=== PATIENT | female | born 1955 | race Caucasian/White ===

== ENCOUNTER → 2017-02-12 | Outpatient (CLI) | payer MEDICARE, OTHER ==
[2017-02-12 14:22] LABS: Ionized Calcium 5.2 mg/dL (4.5-5.3)
== END ==
LOC: LABWHC1 13:34
PROVIDERS: ATTEND Otolaryngology
DX: E55.9 Vitamin D deficiency, unspecified (principal); E03.9 Hypothyroidism, unspecified; E04.2 Nontoxic multinodular goiter
CPT/HCPCS: 36415; 82306; 82330; 84439; 84443

== ENCOUNTER → 2017-02-17 | Outpatient (CLI) | payer MEDICARE, OTHER ==
--- NOTE | 2017-02-17 17:09 | US ---
EXAMINATION TYPE: US thyroid st tissue head/neck DATE OF EXAM: 02/17/2017 2:32 PM COMPARISON: 10/04/2015 CLINICAL HISTORY: 61-year-old female E04.1 Thyroid Nodule. Difficulty swallowing. TECHNIQUE: Multiple sonographic images of the thyroid gland are obtained. FINDINGS: GLAND SIZE: Right Lobe: 4.9 x 1.5 x 1.2 cm Overall Parenchyma: heterogenous Left Lobe: 4.9 x 1.7 x 1.2 cm Overall Parenchyma: heterogeneous Isthmus Thickness: 0.3 cm NODULES RIGHT: # of nodules measured on right: 2 1. 0.6 X 0.5 x 0.5 cm hypoechoic mixed nodule at the mid pole with well-defined margins. This nodu le is wider than tall and shows no intranodular vascularity. Prior size: 0.6 x 0.3 x 0.6 cm 2. 0.7 X 0.6 x 0.4 cm hypoechoic mixed nodule at the lower pole with poorly defined margins. This n odule is wider than tall and shows no intranodular vascularity. Prior size: no prior LEFT: # of nodules measured on left: 3 1. 0.9 X 0.6 x 0.6 cm isoechoic mixed nodule at the upper pole with well-defined margins; present with microcalcifications. This nodule is wide as is tall and shows no intranodular vascularity. Prior size: 1.1 x 1.0 x 0.8 cm 2. 0.6 X 0.5 x 0.3 cm vague isoechoic solid nodule at the midpole is wider than tall and shows no in tranodular vascularity. Prior size: 0.5 x 0.3 x 0.4 cm 3. 0.4 X 0.4 x 0.3 cm hypoechoic mixed nodule at the lower pole with well-defined margins. This nod ule is wider than tall and shows no intranodular vascularity. Prior size: 0.6 x 0.4 x 0.3 cm ISTHMUS: # of nodules measured in the isthmus: 0 Bilateral neck scanned, no evidence of lymphadenopathy. IMPRESSION: Heterogeneous thyroid gland with multiple bilateral nodules. These measure up to 9 mm on the left. Th e larger 7 mm nodule on the right is at the lower pole and is new. Given somewhat poorly defined jeffery ins, this can be reassessed at follow-up. The remaining nodules are largely stable.
== END | disposition home or self-care (01) ==
LOC: RADUSWWP 13:57
PROVIDERS: ATTEND Otolaryngology
DX: E04.1 Nontoxic single thyroid nodule (principal)
CPT/HCPCS: 76536

== ENCOUNTER → 2017-03-05 | Outpatient (CLI) | payer MEDICARE, OTHER | END | disposition home or self-care (01) | LOC: LABWHC1 15:25 | PROVIDERS: ATTEND Otolaryngology | DX: J30.9 Allergic rhinitis, unspecified (principal) | CPT/HCPCS: 36415 ==

== ENCOUNTER → 2018-07-28 | Outpatient (CLI) | payer MEDICARE, OTHER ==
--- NOTE | 2018-07-28 16:46 | CT ---
EXAMINATION TYPE: CT sinus wo con DATE OF EXAM: 07/28/2018 COMPARISON: None HISTORY: Chronic sinusitis. CT DLP: 581.3 mGycm. Automated Exposure Control for Dose Reduction was Utilized. TECHNIQUE: CT scan of the sinuses is performed without contrast, axial images are obtained, coronal r eformatted images are also reviewed. FINDINGS: There is bilateral patency of the os renal complex. There is fairly normal development and aeration of the paranasal sinuses. I see no bony destructive process. Orbital margins are intact. The re is minimal mucosal thickening at the floor of the left maxillary sinus. There is no evidence of re tro-orbital mass. There is atrophy of the right nasal turbinates. IMPRESSION: Minimal left maxillary sinusitis. Otherwise negative exam.
== END | disposition home or self-care (01) ==
LOC: RADCTMAIN 16:13
PROVIDERS: ATTEND Otolaryngology
DX: J32.9 Chronic sinusitis, unspecified (principal)
CPT/HCPCS: 70486

== ENCOUNTER → 2018-09-02 | Outpatient (CLI) | payer MEDICARE, OTHER ==
[2018-09-02 08:41] LABS: Basophils # (A) 0.1 k/uL (0-0.2); Basophils % (A) 1 %; Eosinophils # (A) 0.1 k/uL (0-0.7); Eosinophils % (A) 3 %; HCT 44.4 % (34.0-46.0); HGB 14.3 gm/dL (11.4-16.0); Lymphocytes # (A) 1.3 k/uL (1.0-4.8); Lymphocytes % (A) 28 %; MCH 29.2 pg (25.0-35.0); MCHC 32.2 g/dL (31.0-37.0); MCV 90.8 fL (80.0-100.0); Mean Platelet Volume 6.4; Monocytes # (A) 0.3 k/uL (0-1.0); Monocytes % (A) 6 %; Neutrophils # (A) 2.6 k/uL (1.3-7.7); Neutrophils % (A) 58 %; Platelet Count 340 k/uL (150-450); RBC 4.89 m/uL (3.80-5.40); RDW 12.5 % (11.5-15.5); WBC 4.4 k/uL (3.8-10.6)
[2018-09-02 09:32] LABS: ALT 32 U/L (9-52); AST 21 U/L (14-36); Albumin 4.1 g/dL (3.5-5.0); Alkaline Phosphatase 82 U/L (38-126); Anion Gap 10 mmol/L; Blood Urea Nitrogen 12 mg/dL (7-17); Calcium 9.9 mg/dL (8.4-10.2); Carbon Dioxide 24 mmol/L (22-30); Chloride 107 mmol/L (98-107); Cholesterol 213 mg/dL (<200); Glucose 95 mg/dL (74-99); HDL Cholesterol 53 mg/dL (40-60); LDL Cholesterol,Calculated 135 mg/dL (0-99); Lipase 125 U/L (23-300); Potassium 4.2 mmol/L (3.5-5.1); Sodium 141 mmol/L (137-145); Total Bilirubin 0.6 mg/dL (0.2-1.3); Total Protein 7.4 g/dL (6.3-8.2); Triglycerides 127 mg/dL (<150)
[2018-09-02 09:39] LABS: Amorphous Sediment,Urine Rare /hpf; Appearance,Urine Cloudy (Clear); Bilirubin,Urine Negative (Negative); Blood,Urine Negative (Negative); Color,Urine Yellow; Glucose,Urine (UA) Negative (Negative); Ketones,Urine Negative (Negative); Leukocyte Esterase,Urine Negative (Negative); Mucus,Urine Rare /hpf; Nitrite,Urine Negative (Negative); PH, Urine 7.5 (5.0-8.0); Protein,Urine Trace (Negative); RBC,Urine 1 /hpf (0-5); Specific Gravity,Urine 1.015 (1.001-1.035); Squamous Epithelial Cell,Urine <1 /hpf (0-4); Urobilinogen,Urine <2.0 mg/dL (<2.0); WBC,Urine <1 /hpf (0-5)
[2018-09-02 09:47] LABS: T4, Free (Free Thyroxine) 1.36 ng/dL (0.78-2.19)
[2018-09-02 17:52] LABS: DNA Double-Stranded NEGATIVE (NEGATIVE)
[2018-09-02 19:14] LABS: Hemoglobin A1C 4.9 % (4.0-6.0)
== END ==
LOC: LABWHC1 08:04
PROVIDERS: ATTEND Family Medicine
DX: M81.0 Age-related osteoporosis without current pathological fracture (principal); R14.0 Abdominal distension (gaseous); Z13.220 Encounter for screening for lipoid disorders; Z13.228 Encounter for screening for other metabolic disorders
CPT/HCPCS: 36415; 80053; 80061; 81001; 82306; 82607; 83036; 83690; 84439; 84443; 84481; 85025; 86038; 86225; 86304; 86376

== ENCOUNTER → 2018-09-06 | Outpatient (CLI) | payer MEDICARE, OTHER ==
--- NOTE | 2018-09-08 10:14 | MM ---
Reason for exam: screening (asymptomatic). Last mammogram was performed 2 years and 10 months ago. History: Patient is postmenopausal. Benign left US cyst aspiration of the left breast, March 26, 2006. Benign right US cyst aspiration of the right breast, March 26, 2006. Benign US right core biopsy of the right breast, March 26, 2006. Physical Findings: A clinical breast exam by your physician is recommended on an annual basis and results should be correlated with mammographic findings. MG 3D Screening Mammo W/Cad Bilateral CC and MLO view(s) were taken. Prior study comparison: October 28, 2015, bilateral MG screening mammo w CAD. August 23, 2014, bilateral MG screening mammo w CAD. The breast tissue is heterogeneously dense. This may lower the sensitivity of mammography. There is a 5mm group of calcifications in the upper inner quadrant of the right breast at middle depth. There is architectural distortion in the left upper inner quadrant on MLO 3D 37/65 and CC 30/65. No significant changes when compared with prior studies. ASSESSMENT: Incomplete: need additional imaging evaluation, BI-RAD 0 RECOMMENDATION: Special view mammogram of both breasts. If lesion persists on supplemental views, image directed ultrasound is recommended. [facility] will attempt to contact patient to return for supplemental views and ultrasound if indicated.
== END ==
LOC: RADMAMWWP 12:38
PROVIDERS: ATTEND Family Medicine
DX: Z12.31 Encounter for screening mammogram for malignant neoplasm of breast (principal)
CPT/HCPCS: 77063; 77067

== ENCOUNTER → 2018-09-09 | Outpatient (CLI) | payer MEDICARE, OTHER ==
--- NOTE | 2018-09-09 11:46 | MM ---
Reason for exam: additional evaluation requested from abnormal screening. Last mammogram was performed less than 1 month ago. History: Patient is postmenopausal. Benign left US cyst aspiration of the left breast, March 26, 2006. Benign right US cyst aspiration of the right breast, March 26, 2006. Benign US right core biopsy of the right breast, March 26, 2006. Physical Findings: Nurse did not find any significant physical abnormalities on exam. MG 3D Work Up W/Cad SORAIDA Bilateral LM view(s) were taken. CC with magnification and LM with magnification view(s) were taken of the right breast. Spot compression MLO and spot compression CC view(s) were taken of the left breast. Technologist: RT Sudeep (R)(M) Prior study comparison: September 06, 2018, bilateral MG 3d screening mammo w/cad. October 28, 2015, bilateral MG screening mammo w CAD. Left mild subtled distortion 12 o'clock 11.6cm from nipple. Right subtle calcifications. 6 month follow up recommended. These results were verbally communicated with the patient and result sheet given to the patient on 09/09/18. ASSESSMENT: Incomplete: need additional imaging evaluation, BI-RAD 0 Incomplete: need additional imaging evaluation, BI-RAD 0 of the left breast. Probably benign, BI-RAD 3 finding in the right breast. RECOMMENDATION: Ultrasound of the left breast. Follow-up diagnostic mammogram of the right breast in 6 months.
--- NOTE | 2018-09-09 11:48 | USB ---
Reason for exam: additional evaluation requested from abnormal screening. History: Patient is postmenopausal. Benign left US cyst aspiration of the left breast, March 26, 2006. Benign right US cyst aspiration of the right breast, March 26, 2006. Benign US right core biopsy of the right breast, March 26, 2006. US Breast Workup Limited LT Left limited breast ultrasound including focal area of concern, retroareolar and axilla demonstrates no cystic or solid lesion seen. These results were verbally communicated with the patient and result sheet given to the patient on 09/09/18. ASSESSMENT: Probably benign, BI-RAD 3 RECOMMENDATION: Follow-up diagnostic mammogram of the left breast in 6 months.
== END | disposition home or self-care (01) ==
LOC: RADMAMWWP 09:59
PROVIDERS: ATTEND Family Medicine
DX: R92.8 Other abnormal and inconclusive findings on diagnostic imaging of breast (principal)
CPT/HCPCS: 77066; 76642; G0279; 77062

== ENCOUNTER → 2018-09-14 | Outpatient (CLI) | payer MEDICARE, OTHER ==
--- NOTE | 2018-09-14 15:33 | US ---
EXAMINATION TYPE: US thyroid st tissue head/neck DATE OF EXAM: 09/14/2018 COMPARISON: US 02/17/17 CLINICAL HISTORY: Bloating R14.0, E04.1 Thyroid Nodule. GLAND SIZE: Right Lobe: 4.1 x 1.6 x 1.2 cm Overall Parenchyma: heterogenous Left Lobe: 4.1 x 1.7 x 1.2 cm Overall Parenchyma: heterogeneous Isthmus Thickness: 0.3 cm NODULES RIGHT: # of nodules measured on right: 2 1. 0.6 X 0.4 x 0.3 cm hypoechoic solid nodule at the mid pole with well-defined margins; . This no dule is taller than wide and shows intranodular vascularity. Prior size: 0.6 x 0.5 x 0.5 cm 2.0.3 cm hypoechoic cystic nodule at the mid pole with well-defined margins; . This nodule is taller than wide and shows no intranodular vascularity. Prior size: 0.7 x 0.6 x 0.4 cm LEFT: # of nodules measured on left: 2 1. 1.1 X 0.9 x 0.5 cm hypoechoic mixed nodule at the mid pole with well-defined margins; present wi th microcalcifications. This nodule is taller than wide and shows intranodular vascularity. Prior size: 0.9 x 0.6 x 0.6 cm 2. 1.0 X 0.6 x 0.5 cm hypoechoic solid nodule at the lower pole with well-defined margins; . This n odule is taller than wide and shows intranodular vascularity. Prior size: 0.5 x 0.3 x 0.4 cm 3Not seen this time. Prior size: 0.6 x 0.4 x 0.3 cm ISTHMUS: # of nodules measured in the isthmus: 0 Bilateral neck scanned, no evidence of lymphadenopathy. IMPRESSION: Stable nonspecific thyroid nodularity.
--- NOTE | 2018-09-14 17:15 | CT ---
EXAMINATION TYPE: CT abdomen pelvis w con DATE OF EXAM: 09/14/2018 COMPARISON: None HISTORY: Patient complains of bloating and acid reflux. CT DLP: 762.3 mGycm Automated exposure control for dose reduction was used. TECHNIQUE: Helical acquisition of images from the lung bases through the pelvis have been completed. CONTRAST: Performed with Oral Contrast and with IV Contrast, patient injected with 100 mL of Isovue 300. FINDINGS: There is a hiatal hernia with partial fixed intrathoracic stomach LUNG BASES: No significant abnormality is appreciated. AORTA: No significant abnormality is appreciated. LIVER/GB: No significant abnormality is appreciated. PANCREAS: No significant abnormality is seen. SPLEEN: No significant abnormality is seen. ADRENALS: No significant abnormality is seen. KIDNEYS: Cortical cyst associated with the left kidney, no hydronephrosis bilaterally REPRODUCTIVE ORGANS: No significant abnormality is seen BOWEL: Mild wall thickening of the rectosigmoid colon is nonspecific, difficult to exclude a mucosal lesion, there is no evident bowel obstruction. No evident appendicitis. FREE AIR: No Free Air visible. ASCITES: None visible. PELVIC ADENOPATHY: None visualized. RETROPERITONEAL ADENOPATHY: No Retroperitoneal Adenopathy visible. URINARY BLADDER: No significant abnormality is seen. OSSEOUS STRUCTURES: Degenerative disc changes noted in the lower lumbar spine. L1 shows a probable S chmorl's node superior endplate. Facet arthropathy changes are present IMPRESSION: HIATAL HERNIA. ADDITIONAL NONSPECIFIC FINDINGS DESCRIBED ABOVE.
== END | disposition home or self-care (01) ==
LOC: RADCTMAIN 13:44
PROVIDERS: ATTEND Family Medicine
DX: E04.2 Nontoxic multinodular goiter (principal); K44.9 Diaphragmatic hernia without obstruction or gangrene
CPT/HCPCS: 76536; 74177; Q9967

== ENCOUNTER → 2019-01-11 | Outpatient (CLI) | payer MEDICARE, OTHER ==
--- NOTE | 2019-01-11 08:08 | US ---
EXAMINATION TYPE: US abdomen complete DATE OF EXAM: 01/11/2019 COMPARISON: NONE CLINICAL HISTORY: R10.9 Abdominal Pain. stomach distended, recent CT EXAM MEASUREMENTS: Liver Length: 15.5 cm Gallbladder Wall: 0.2 cm CBD: 0.5 cm Spleen: 9.0 cm Right Kidney: 8.3 x 4.0 x 4.1 cm Left Kidney: 9.2 x 4.2 x 5.0 cm overlying bowel gas limits Pancreas: wnl Liver: wnl Gallbladder: wnl Evidence for sonographic Landeros's sign: no CBD: wnl Spleen: wnl Right Kidney: wnl Left Kidney: wnl Upper IVC: wnl Abd Aorta: wnl IMPRESSION: 1.
== END ==
LOC: RADUSWWP 07:28
PROVIDERS: ATTEND Family Medicine
DX: R10.9 Unspecified abdominal pain (principal)
CPT/HCPCS: 76700

== ENCOUNTER → 2019-03-13 | Outpatient (CLI) | payer MEDICARE, OTHER ==
[2019-03-13 08:36] LABS: HCT 44.9 % (34.0-46.0); HGB 14.7 gm/dL (11.4-16.0); Lymphocytes % (A) 25 %; MCH 29.3 pg (25.0-35.0); MCHC 32.7 g/dL (31.0-37.0); MCV 89.8 fL (80.0-100.0); Mean Platelet Volume 6.8; Neutrophils % (A) 61 %; Platelet Count 358 k/uL (150-450); RBC 5.01 m/uL (3.80-5.40); RDW 12.7 % (11.5-15.5); WBC 5.1 k/uL (3.8-10.6)
[2019-03-13 08:37] LABS: Basophils # (A) 0.1 k/uL (0-0.2); Basophils % (A) 1 %; Eosinophils # (A) 0.2 k/uL (0-0.7); Eosinophils % (A) 4 %; Lymphocytes # (A) 1.2 k/uL (1.0-4.8); Monocytes # (A) 0.3 k/uL (0-1.0); Monocytes % (A) 6 %; Neutrophils # (A) 3.1 k/uL (1.3-7.7)
--- NOTE | 2019-03-13 08:51 | MM ---
Reason for exam: follow-up at short interval from prior study. Last mammogram was performed 6 months ago. History: Patient is postmenopausal. Benign left US cyst aspiration of the left breast, March 26, 2006. Benign right US cyst aspiration of the right breast, March 26, 2006. Benign US right core biopsy of the right breast, March 26, 2006. Physical Findings: Nurse did not find any significant physical abnormalities on exam. MG 3D Diag Mammo W/Cad LT CC, MLO, and XCCL view(s) were taken of the left breast. Prior study comparison: September 09, 2018, bilateral MG 3d work up w/cad SORAIDA. September 06, 2018, bilateral MG 3d screening mammo w/cad. October 28, 2015, bilateral MG screening mammo w CAD. August 23, 2014, bilateral MG screening mammo w CAD. The breast tissue is heterogeneously dense. This may lower the sensitivity of mammography. Questioned upper inner quadrant architectural distortion is not as defined and additional 6 month follow up recommended. 6 month follow up also recommended for the subtle 12-1 o'clock right breast microcalcifications which seen to have been present in 2014. These results were verbally communicated with the patient and result sheet given to the patient on 03/13/19. ASSESSMENT: Probably benign, BI-RAD 3 RECOMMENDATION: Follow-up diagnostic mammogram of both breasts in 6 months. Back on schedule.
[2019-03-13 08:52] LABS: ALT 26 U/L (9-52); AST 19 U/L (14-36); Albumin 4.5 g/dL (3.5-5.0); Alkaline Phosphatase 84 U/L (38-126); Anion Gap 8 mmol/L; Blood Urea Nitrogen 11 mg/dL (7-17); Carbon Dioxide 25 mmol/L (22-30); Chloride 109 mmol/L (98-107); Cholesterol 194 mg/dL (<200); Glucose 92 mg/dL (74-99); HDL Cholesterol 53 mg/dL (40-60); LDL Cholesterol,Calculated 119 mg/dL (0-99); Lipase 113 U/L (23-300); Potassium 4.5 mmol/L (3.5-5.1); Sodium 142 mmol/L (137-145); Total Bilirubin 0.6 mg/dL (0.2-1.3); Total Protein 7.7 g/dL (6.3-8.2); Triglycerides 110 mg/dL (<150)
[2019-03-13 16:38] LABS: Vitamin D 25 Hydroxy 47.1 ng/mL (30.0-100.0)
== END | disposition home or self-care (01) ==
LOC: RADMAMWWP 06:53
PROVIDERS: ATTEND Family Medicine
DX: R92.8 Other abnormal and inconclusive findings on diagnostic imaging of breast (principal); N63.0 Unspecified lump in unspecified breast; K21.0 Gastro-esophageal reflux disease with esophagitis; E78.5 Hyperlipidemia, unspecified; E04.1 Nontoxic single thyroid nodule; R10.9 Unspecified abdominal pain
CPT/HCPCS: 84439; 80061; 80053; 82607; 83690; 84443; 85025; 82306; 83036; 77065; 36415; G0279; 77061

== ENCOUNTER → 2019-08-29 | Outpatient (CLI) | payer MEDICARE, OTHER ==
--- NOTE | 2019-08-29 10:07 | US ---
EXAMINATION TYPE: US thyroid st tissue head/neck DATE OF EXAM: 08/29/2019 COMPARISON: Thyroid ultrasounds dated 02/17/2017 and 10/04/2015 CLINICAL HISTORY: E04.1 Nontoxic single thyroid nodule. No thyroid meds. FU nodules. GLAND SIZE: Right Lobe: 4.3 x 2.2 x 1.1 cm Overall Parenchyma: homogenous Left Lobe: 4.0 x 1.5 x 1.1 cm Overall Parenchyma: homogeneous Isthmus Thickness: 0.4 cm NODULES RIGHT: # of nodules measured on right: 2 1. 0.4 X 0.4 x 0.2 cm hypoechoic nodule at the mid pole with well-defined margins. This nodule is wider than tall and shows intranodular vascularity. Prior size: 0.6 x 0.4 x 0.3 cm 2. 0.7 X 0.4 x 0.3 cm mixed nodule at the lower pole with well-defined margins. This nodule is wide r than tall and shows intranodular vascularity. Prior size: 0.7 x 0.6 x 0.4 cm LEFT: # of nodules measured on left: 2 1. 1.1 X 0.6 x 0.7 cm mixed nodule at the mid/upper pole with well-defined margins. This nodule is taller than wide and shows intranodular vascularity. Prior size: 1.1 x 0.9 x 0.5 cm 2. 0.5 X 0.3 x 0.3 cm hypoechoic solid nodule at the lower pole with well-defined margins. This nod ule is wide as tall and shows intranodular vascularity. Prior size: 1.0 x 0.6 x 0.5 cm ISTHMUS: # of nodules measured in the isthmus: 0 Bilateral neck scanned, no evidence of lymphadenopathy. IMPRESSION: Multinodular goiter with multiple subcentimeter thyroid nodules and one dominant left thy roid nodule measuring 1.1 cm, stable from the prior. The previously seen 7 mm nodule on the right emgan t demonstrated somewhat poorly defined margins on the exam of 2017 has not increased in size.
== END | disposition home or self-care (01) ==
LOC: RADUSWWP 09:19
PROVIDERS: ATTEND Family Medicine
DX: E04.2 Nontoxic multinodular goiter (principal)
CPT/HCPCS: 76536

== ENCOUNTER → 2019-09-15 | Outpatient (CLI) | payer MEDICARE, OTHER ==
--- NOTE | 2019-09-15 10:10 | MM ---
Reason for exam: additional evaluation requested from prior study. Last mammogram was performed 6 months ago. History: Patient is postmenopausal. Benign left US cyst aspiration of the left breast, March 26, 2006. Benign right US cyst aspiration of the right breast, March 26, 2006. Benign US right core biopsy of the right breast, March 26, 2006. Physical Findings: Nurse did not find any significant physical abnormalities on exam. MG 3D Diag Mammo W/Cad SORAIDA Bilateral CC and MLO view(s) were taken. LM, CC with magnification, and LM with magnification view(s) were taken of the left breast. Prior study comparison: March 13, 2019, left breast MG 3d diag mammo w/cad LT. September 09, 2018, bilateral MG 3d work up w/cad SORAIDA. The breast tissue is heterogeneously dense. This may lower the sensitivity of mammography. There is a new 1.2cm group of heterogenous right upper inner quadrant middle depth calcifications, biopsy recommended. No suspicious abnormality on the left. Right biopsy marker noted. These results were verbally communicated with the patient and result sheet given to the patient on 09/15/19. ASSESSMENT: Suspicious, BI-RAD 4 RECOMMENDATION: Stereotactic core biopsy of the right breast. Called office with mammographic findings and has scheduled an appointment for the patient for 09/25/19 at 1:[address] Wei. Biopsy scheduled for 10/05/19 at 2:20. PRELIMINARY REPORT CALLED AND FAXED TO DR. WEI ON 09/15/19.
== END | disposition home or self-care (01) ==
LOC: RADMAMWWP 07:27
PROVIDERS: ATTEND Family Medicine
DX: R92.8 Other abnormal and inconclusive findings on diagnostic imaging of breast (principal)
CPT/HCPCS: 77066; G0279; 77062

== ENCOUNTER → 2019-10-05 | Day surgery (SDC) | payer MEDICARE, OTHER ==
[2019-10-05 14:52] VITALS: RESP 18; TEMP 98; BMI 27.8
[2019-10-05 16:39] VITALS: BP 144/80; PULSE 60
--- NOTE | 2019-10-06 07:28 | MM ---
Stereotactic Mammotome core biopsy right breast. HISTORY: right breast microcalcifications. The microcalcifications in question within the right breast were targeted by the undersigned. Procedure was performed by the undersigned. Informed consent was obtained and all of the patients questions were answered. The standard sterile technique was utilized and appropriate local anesthesia was obtained with 1% lidocaine. Mammotome probe was advanced and multiple core samples were obtained and sent to pathology for interpretation. Microclip marker was deployed at the site of biopsy. Post procedural mammogram demonstrates appropriate deployment of radiopaque clip marker. The patient tolerated the procedure well and left the department in stable condition. Pathology results are pending. IMPRESSION: Successful stereotactic core biopsy microcalcifications right breast with pathology results pending. Pathology Results: High Risk RIGHT BREAST, STEREOTACTIC CORE BIOPSY: Fragmented intraductal papilloma and background fibrocystic changes including cysts, fibrosis and sclerosing adenosis. Recommendation Surgical consult of the right breast. SASHA
== END ==
LOC: RADMAMWWP 13:36
PROVIDERS: ATTEND Family Medicine
DX: D24.1 Benign neoplasm of right breast (principal); N60.11 Diffuse cystic mastopathy of right breast; N60.21 Fibroadenosis of right breast; R92.0 Mammographic microcalcification found on diagnostic imaging of breast; Z88.6 Allergy status to analgesic agent; Z88.5 Allergy status to narcotic agent
CPT/HCPCS: 88305; 19081; A4648; J2001

== ENCOUNTER → 2019-10-16 | Outpatient (CLI) | payer MEDICARE, OTHER ==
[2019-10-16 09:08] LABS: Basophils # (A) 0.1 k/uL (0-0.2); Basophils % (A) 1 %; Eosinophils # (A) 0.2 k/uL (0-0.7); Eosinophils % (A) 5 %; HCT 42.2 % (34.0-46.0); HGB 13.9 gm/dL (11.4-16.0); Lymphocytes # (A) 1.2 k/uL (1.0-4.8); Lymphocytes % (A) 30 %; MCV 90.8 fL (80.0-100.0); Mean Platelet Volume 5.7; Monocytes # (A) 0.2 k/uL (0-1.0); Monocytes % (A) 5 %; Neutrophils # (A) 2.2 k/uL (1.3-7.7); Neutrophils % (A) 56 %; Platelet Count 345 k/uL (150-450); RBC 4.65 m/uL (3.80-5.40); RDW 12.2 % (11.5-15.5)
[2019-10-16 16:47] LABS: African American GFR (CKD) 89.7 (60.0-200.0); Albumin 4.1 g/dL (3.80-4.90); Albumin/Globulin Ratio 1.95 (1.60-3.17); Anion Gap 7.3 mmol/L (4.00-12.00); Calcium 9.3 mg/dL (8.7-10.3); Carbon Dioxide 24.7 mmol/L (21.6-31.8); Chol/HDL Ratio 3.55; Globulin 2.1 g/dL (1.6-3.3); LDL Cholesterol,Calculated 122.8 mg/dL (0.0-131.0); Non-African American GFR(CKD) 77.4 (60.0-200.0); Potassium 4.3 mmol/L (3.5-5.5); Total Bilirubin 0.4 mg/dL (0.2-1.2); Total Protein 6.2 g/dL (6.2-8.2); VLDL Calculation 17.2 mg/dL (5.00-40.00)
== END ==
LOC: LABWHC1 08:23
PROVIDERS: ATTEND Family Medicine
DX: E78.5 Hyperlipidemia, unspecified (principal); K21.0 Gastro-esophageal reflux disease with esophagitis; E04.1 Nontoxic single thyroid nodule
CPT/HCPCS: 36415; 80053; 80061; 82607; 84439; 84443; 84681; 85025

== ENCOUNTER → 2019-11-16 | Outpatient (CLI) | payer MEDICARE, OTHER ==
[2019-11-16 10:34] VITALS: BP 150/93; PULSE 60; RESP 18; TEMP 97.8
--- NOTE | 2019-11-16 11:39 | P.GSHP ---
History of Present Illness H&P Date: 11/16/19 Chief Complaint: Intraductal papilloma Masood is a 64-year-old white female in consultation for Dr. Wei secondary to a core biopsy revealing an intraductal papilloma. [place] [address]. This revealed a 1.2 cm group of heterogeneous right upper inner quadrant no depth calcifications for which biopsy was recommended. No lesions of concern were noted in the left breast. The patient underwent a stereotactic core biopsy of the right breast on 1120 119. This was felt to be successful and a fragmented intraductal papilloma was noted. Surgical consultation was recommended. This is status post left breast ultrasound core biopsy many years ago which was benign. Patient does not have any nipple discharge or skin changes of concern. She is not complaining of any pain in her breasts. Patient has large breasts that a TURBT. She does complain of back pain related to this as well as shoulder notching. Family History: father: skin cancer sister: thyroid cancer Hormonal History: menarche: 13 G 2P2, breast fed: yes, first : 28 menopasue: 54 BCP: 10 years hormones: none Surgical History: 1. tubal ligation Medical History: 1. ? lupus 2. diverticulosis 3. hiatal hernia fixed intrathoracic 4. bladder prolapsed Social History: smoke: none alcohol: none drugs: none - Constitutional Constitutional: Denies chills, Denies fever - EENT Comment: needs reading glasses Eyes: left pain, bilateral dry eye Ears: deny: decreased hearing, tinnitus Ears, nose, mouth and throat: Denies headache, Denies sore throat - Breasts Breasts: bilateral: as per HPI - Cardiovascular Cardiovascular: Denies chest pain, Denies shortness of breath - Respiratory Respiratory: Reports cough - Gastrointestinal Comment: diverticulosis, hiatal hernia Gastrointestinal: Reports constipation, Denies abdominal pain, Denies diarrhea, Denies nausea, Denies vomiting - Genitourinary (Female) Genitourinary: Denies dysuria, Denies hematuria - Menstruation Menstruation: Reports postmenopausal - Musculoskeletal Comment: lupus arthritis L1 vertebrae fractured osteoporesis - Integumentary Comment: dry skin Integumentary: Denies pruritus, Denies rash - Neurological Neurological: Denies numbness, Denies weakness - Psychiatric Psychiatric: Denies anxiety, Denies depression - Endocrine Endocrine: Denies fatigue, Denies weight change - Hematologic/Lymphatic Comment: none - Allergic/Immunologic Allergic/Immunologic: Reports as per HPI, Reports seasonal allergies Past Medical History Additional Past Medical History / Comment(s): lupus, osteoporosis, hiatal hernia, diverticulosis History of Any Multi-Drug Resistant Organisms: None Reported Past Surgical History: Tubal Ligation Additional Past Surgical History / Comment(s): colonoscopy Past Anesthesia/Blood Transfusion Reactions: No Reported Reaction Past Psychological History: No Psychological Hx Reported Smoking Status: Never smoker Past Alcohol Use History: None Reported Past Drug Use History: None Reported Medications and Allergies Home Medications Medication Instructions Recorded Confirmed Type Cetirizine HCl [Zyrtec] 10 mg PO DAILY 05/13/14 11/16/19 History Ergocalciferol [Vitamin D2] 50,000 unit PO QMONTH 09/29/19 11/16/19 History Multivitamins, Thera [Multivitamin 1 tab PO DAILY 09/29/19 11/16/19 History (formulary)] Allergies Allergy/AdvReac Type Severity Reaction Status Date / Time naproxen Allergy Swelling Verified 11/16/19 10:30 Quinazolinones Allergy Rapid Verified 11/16/19 10:30 Heart Rate acetaminophen [From Vicodin] AdvReac Itching Verified 11/16/19 10:30 hydrocodone bitartrate AdvReac Itching Verified 11/16/19 10:30 [From Vicodin] Surgical - Exam Vital Signs Temp Pulse Resp BP Pulse Ox 97.8 F 60 18 150/93 97 11/16/19 10:31 11/16/19 10:31 11/16/19 10:31 11/16/19 10:31 11/16/19 10:31 BMI 29.9 - General well developed, well nourished, no distress - Eyes normal ocular movement, no icteric - ENT no hearing loss, no congestion - Neck no masses, trachea midline - Respiratory normal respiratory effort, clear to auscultation - Cardiovascular Rhythm: regular Heart Sounds: normal: S1, S2 - Abdomen Abdomen: soft, non tender, no guarding, no rigid, no rebound - Integumentary no rash, no abnormal pigmentation - Neurologic no disoriented, no combative - Musculoskeletal normal gait, normal posture - Psychiatric oriented to time, oriented to person, oriented to place, speech is normal, memory intact breast exam: BRA 36DDD Grade 3 ptosis right breast: Multi-positional exam no dominant masses or nodules of concern, fibrocystic changes At the area of the stereo biopsy there is a small hematoma, near 12 O Clock Right axilla: No adenopathy of concern Left breast: Multi-positional exam no dominant masses or nodules of concern, fibrocystic changes Left axilla: No adenopathy of concern Results Mammogram reviewed with Dr. Kruse, pathology results reviewed Assessment and Plan Assessment: Impression: 1. Intraductal papilloma on core biopsy of the right breast 2. Fibrocystic breast changes 3. hiatal hernia 4. back pain related to breast size 5. shoulder notching related to breast size 6. ? lupus 7. abnormal mammogram right breast Plan: 1. Needle localization and excisional biopsy right breast intraductal papilloma via crescent mastopexy 2. Referral for hiatal hernia 3. Consider breast reduction related to back pain and shoulder notching I had a discussion with the patient regarding the risks and benefits of the procedure. We've talked about the need for needle local excisional biopsy of the area of concern in the right breast. We talked about risks and benefits. Risks include bleeding, infection, reaction to the anesthetic. We also include the possibility of the needle moving and not obtaining the correct area requiring reexcision at a later date. We have talked about methods for excision which would include an incision directly over the lesion removed or removal via a crescent mastopexy. She understands with a crescent mastopexy she will have a slight elevation of the nipple area complex on that side. She wishes to proceed with this. Presently she has grade 3 ptosis. We have also discussed the fact that she would like to consider bilateral breast reduction, however she wishes at this time to proceed with excision of the areas of concern first. CC: Dr. Wei Encounter, 45 minutes, > 50% of time in planning and counselling.
== END | disposition home or self-care (01) ==
LOC: WWCWWP 09:26
PROVIDERS: ATTEND Surgery
DX: Z53.9 Procedure and treatment not carried out, unspecified reason (principal)

== ENCOUNTER 2020-01-09 08:14 | Day surgery (SDC) | payer MEDICARE, OTHER ==
[2020-01-04 13:12] VITALS: BMI 29.6
[~2020-01-09 08:14] MED LIST: DEXAMETHASONE SOD PHOSPHATE 10 MG/ML 1 ML VIAL IV ONE; HEPARIN SODIUM,PORCINE 5,000 UNIT/ML 1 ML VIAL SQ ONE; LACTATED RINGERS 1,000 ML IV SCH; LIDOCAINE 1% 20 ML VIAL (10MG/ML) FOR IV START INTRADERMA PRN; ONDANSETRON 4 MG/2 ML VIAL IVP ONE; Pre Op ABX Message 1 EACH MISC MISCELLANE ONE; SCOPOLAMINE 1.5MG/72HR PATCH TRANSDERM ONE; fentaNYL (PF) 50 MCG/ML 2 ML AMP IV PRN
[2020-01-09] MEDS ORDERED: ALPRAZolam 0.25 MG TAB PO ONE (09:07)
[2020-01-09] MEDS ORDERED: LIDOCAINE 1% INJ 10MG/ML (20 ML MDV) SQ ONE ×3 (10:03→12:57)
[2020-01-09] MEDS ORDERED: MIDAZOLAM 2 MG/2 ML VIAL ONE (11:51)
[2020-01-09] MEDS ORDERED: fentaNYL (PF) 50 MCG/ML 2 ML AMP ONE (11:51)
[2020-01-09] MEDS ORDERED: SODIUM CHLORIDE 4MEQ/ML 30 ML VIAL IV ONE (11:51)
[2020-01-09] MEDS ORDERED: LIDOCAINE 1% INJ 10MG/ML (20 ML MDV) ONE (11:51)
[2020-01-09] MEDS ORDERED: PROPOFOL 10 MG/ML 20 ML VIAL IV ONE (11:51)
[2020-01-09] MEDS ORDERED: NEOSTIGMINE 1 MG/ML 10 ML VIAL ONE (11:51)
[2020-01-09] MEDS ORDERED: ROCURONIUM BROMIDE 10 MG/ML 5 ML VIAL IV ONE (11:51)
[2020-01-09] MEDS ORDERED: SUCCINYLCHOLINE CHLORIDE 100 MG/5 ML SYR IV ONE (11:51)
[2020-01-09] MEDS ORDERED: LACTATED RINGERS 1,000 ML IV ONE (12:58)
--- NOTE | 2020-01-09 13:02 | P.OP ---
Date of Procedure: 01/09/20 Preoperative Diagnosis: Intraductal papilloma on core biopsy right breast Postoperative Diagnosis: Same Procedure(s) Performed: needle localization excisional biopsy Anesthesia: CORBYA, local Surgeon: Jayne Marte Estimated Blood Loss (ml): 5 IV fluids (ml): 600 Pathology: other (Breast tissue) Condition: stable Disposition: same day Indications for Procedure: Core biopsy intraductal papilloma Operative Findings: Fibrofatty breast tissue Description of Procedure: Raisa is a 64-year-old white female status post core biopsy area of concern in the right breast. Pathology revealed an intraductal papilloma. The risks and benefits of excision were discussed with the patient and she wished to proceed. The patient presented first to the radiology department where needle localization of the area of concern was performed. Patient came to the operating room and following induction of anesthesia the right breast was prepped and draped in a sterile fashion. An incision was made and carried down to the shaft of the needle. The needle was brought into the field of work. The area was grasped using an Allis clamp. Surrounding tissue was excised. Radiograph of the specimen revealed the area of concern about removed. The specimen was painted for orientation. The wound was irrigated. After assured that hemostasis was attained the deep tissues were closed using 3-0 Vicryl suture. The skin was closed using 4-0 Monocryl. Patient tolerated the procedure in stable condition. All instrument and sponge counts were correct at the end of the case.
--- NOTE | 2020-01-09 13:03 | P.DS ---
Providers Attending physician: Jayne Marte Primary care physician: Inna Wei Plan - Discharge Summary Discharge Rx Participant: Yes New Discharge Prescriptions: No Action Cetirizine HCl [Zyrtec] 10 mg PO DAILY Ergocalciferol [Vitamin D2] 50,000 unit PO QMONTH Multivitamins, Thera [Multivitamin (formulary)] 1 tab PO DAILY Omeprazole [PriLOSEC] 40 mg PO DAILY PRN PRN Reason: Gi Upset Discharge Medication List Cetirizine HCl [Zyrtec] 10 mg PO DAILY 05/13/14 [History] Ergocalciferol [Vitamin D2] 50,000 unit PO QMONTH 09/29/19 [History] Multivitamins, Thera [Multivitamin (formulary)] 1 tab PO DAILY 09/29/19 [History] Omeprazole [PriLOSEC] 40 mg PO DAILY PRN 01/04/20 [History] Follow up Appointment(s)/Referral(s): Jayne Marte MD [STAFF PHYSICIAN] - 01/18/20 2:00 pm Activity/Diet/Wound Care/Special Instructions: Do not drive for 24 hours after discharge May shower after 48 hours Wear bra at all times Discharge Disposition: HOME SELF-CARE
[2020-01-09] MEDS ORDERED: ONDANSETRON 4 MG/2 ML VIAL IVP ONE (13:12)
--- NOTE | 2020-01-09 13:13 | MM ---
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 TECHNIQUE: Needle localization with wire placement and surgical excision of area of concern in the right breast. FINDINGS: The procedure of needle localization with wire placement and than surgical excision was explained to the patient. Benefits, alternatives, and risks were discussed. An informed consent was then obtained. Preprocedural timeout was performed. The shortest pathway for procedure was chosen. Shortest pathway was CC from above approach. The overlying skin was prepped and draped in usual sterile fashion. 10 cc of 1% lidocaine was used as anesthetic into the skin and subcutaneous tissue up to the level of area of concern. A 5 cm needle was used. It was placed via a CC from above approach under mammographic guidance. Subsequent 90 degrees mammogram show the needle to be in satisfactory position relative to the targeted area. At this point, wire was placed and the needle was withdrawn. The wire was fixed to patient's skin. Images were marked for surgeon. The patient tolerated the procedure well without any immediate complication. The patient was kept in the radiology department for short stay after the procedure and then taken to surgery for surgical excision. Targeted biopsy marker and wire are identified in specimen mammogram. The patient was kept in hospital for short stay after the procedure and then discharged home in stable condition. Findings were communicated to the OR by Shanda Gunderson at 1254 on 09/08/2020. IMPRESSION: Successful, uncomplicated needle localization with wire placement and surgical excision of a targeted biopsy marker indicating the biopsy-proven intraductal papilloma in the right breast, full pathology results to follow. Pathology Results: High Risk RIGHT BREAST, NEEDLE LOCALIZATION EXCISION: Intraductal papilloma with atypia (atypical papilloma), margins negative. Background fibrocystic changes and previous biopsy site. See Note. Recommendation Follow up mammogram of the right breast in 6 months. [facility]
[2020-01-09 13:14] VITALS: TEMP 97.1
[2020-01-09 14:23] VITALS: RESP 20
[2020-01-09 14:47] VITALS: BP 123/75; PULSE 61
== END 2020-01-09 15:40 | disposition home or self-care (01) ==
LOC: OR 08:14
PROVIDERS: ATTEND Surgery
DX: D24.1 Benign neoplasm of right breast (principal); N60.11 Diffuse cystic mastopathy of right breast; N60.12 Diffuse cystic mastopathy of left breast; K44.9 Diaphragmatic hernia without obstruction or gangrene; M54.9 Dorsalgia, unspecified; N64.81 Ptosis of breast; L76.32 Postprocedural hematoma of skin and subcutaneous tissue following other procedure; K57.90 Diverticulosis of intestine, part unspecified, without perforation or abscess without bleeding; N81.10 Cystocele, unspecified; J30.2 Other seasonal allergic rhinitis; Z88.6 Allergy status to analgesic agent; Z88.5 Allergy status to narcotic agent; Z88.8 Allergy status to other drugs, medicaments and biological substances; Z78.0 Asymptomatic menopausal state; Z98.51 Tubal ligation status; Z87.39 Personal history of other diseases of the musculoskeletal system and connective tissue; Z79.899 Other long term (current) drug therapy; Z97.2 Presence of dental prosthetic device (complete) (partial); E04.1 Nontoxic single thyroid nodule; Z85.3 Personal history of malignant neoplasm of breast; Z80.8 Family history of malignant neoplasm of other organs or systems; H04.123 Dry eye syndrome of bilateral lacrimal glands; M19.90 Unspecified osteoarthritis, unspecified site; S32.019A Unspecified fracture of first lumbar vertebra, initial encounter for closed fracture; M81.0 Age-related osteoporosis without current pathological fracture; X58.XXXA Exposure to other specified factors, initial encounter
CPT/HCPCS: 19101; 88342; 88307; 88341; 76098; 19281; J2250; J1644; J1100; J2710; J2405; J2001; J3010; J0330; J2704

== ENCOUNTER → 2020-01-18 | Outpatient (CLI) | payer MEDICARE, OTHER ==
[2020-01-18 14:24] VITALS: BP 141/86; PULSE 67; RESP 18; TEMP 97.3
--- NOTE | 2020-01-18 15:02 | P.PN ---
Progress Note - Text Progress Note Date: 01/18/20 Raisa is a 64-year-old white female status post Localization excisional [place] [id number]. Pathology revealed an intraductal papilloma with atypia, margins were negative. Patient is doing well postoperatively without complaints. Physical Exam: incision: clean and dry, mild echymosis, no infection Impression: 1. Right breast intraductal papilloma with atypia completely excised Plan: 1. Repeat right breast mammogram 6 months with physician exam at that time CC Dr. Wei
== END | disposition home or self-care (01) ==
LOC: WWCWWP 14:01
PROVIDERS: ATTEND Surgery
DX: Z53.9 Procedure and treatment not carried out, unspecified reason (principal)

== ENCOUNTER → 2020-07-09 | Outpatient (CLI) | payer MEDICARE, OTHER ==
--- NOTE | 2020-07-09 09:31 | MM ---
Reason for exam: follow-up at short interval from prior study. Last mammogram was performed 10 months ago. History: Patient is postmenopausal and has history of high-risk lesion on a previous biopsy at age 64. High risk MG pre op needle loc RT of the right breast, January 09, 2020. High risk MG stereo VAD BX RT of the right breast, October 05, 2019. Benign left US cyst aspiration of the left breast, March 26, 2006. Benign right US cyst aspiration of the right breast, March 26, 2006. Benign US right core biopsy of the right breast, March 26, 2006. Physical Findings: Nurse did not find any significant physical abnormalities on exam. MG 3D Diag Mammo W/Cad RT CC and MLO view(s) were taken of the right breast. Prior study comparison: September 15, 2019, bilateral MG 3d diag mammo w/cad SORAIDA. March 13, 2019, left breast MG 3d diag mammo w/cad LT. The breast tissue is heterogeneously dense. This may lower the sensitivity of mammography. Stable post operative changes right breast. No significant new findings when compared with previous films. These results were verbally communicated with the patient and result sheet given to the patient on 07/09/20. ASSESSMENT: Benign, BI-RAD 2 RECOMMENDATION: Routine screening mammogram of both breasts in 6 months.
== END | disposition home or self-care (01) ==
LOC: RADMAMWWP 08:24
PROVIDERS: ATTEND Surgery
DX: R92.8 Other abnormal and inconclusive findings on diagnostic imaging of breast (principal)
CPT/HCPCS: 77065; G0279; 77061

== ENCOUNTER 2021-02-21 14:56 | Inpatient (IN) | payer MEDICARE, OTHER ==
[2021-02-21] MEDS ORDERED: HYDROmorphone 0.5 MG/0.5 ML SYRINGE IVP STA ×2 (16:48→18:47)
--- NOTE | 2021-02-21 17:35 | XR ---
EXAMINATION TYPE: XR humerus LT DATE OF EXAM: 02/21/2021 COMPARISON: None HISTORY: Fall, pain TECHNIQUE: 2V left humerus FINDINGS: Other appears to be an avulsion from the humeral head region. This is poorly delineated. Gr eater tuberosity is suspected. The shaft and distal humerus appears intact. IMPRESSION: 1. Suspected avulsion from the humeral head. This could be further evaluated with CT.
--- NOTE | 2021-02-21 17:37 | XR ---
EXAMINATION TYPE: XR shoulder complete LT DATE OF EXAM: 02/21/2021 COMPARISON: Humerus HISTORY: Fall, pain TECHNIQUE: Three-view left shoulder FINDINGS: Less well-visualized to the suspected avulsion from the humeral head. Cortical disruption h owever is evident. Greater tuberosity can be further evaluated with CT. The acromioclavicular junction appears normal. The humeral head articulates with the glenoid. IMPRESSION: 1. Suspected avulsion of the greater tuberosity. This can be further evaluated with CT.
--- NOTE | 2021-02-21 17:39 | XR ---
EXAMINATION TYPE: XR wrist complete LT DATE OF EXAM: 02/21/2021 COMPARISON: None HISTORY: Fall, pain TECHNIQUE: 4 view left wrist FINDINGS: Joint spaces are preserved. There is prominent soft tissue swelling present. On the lateral projection there is lucency within the carpal region suspicious for a triquetral avuls ion. Follow-up studies can be performed 7-10 days from acute trauma for continued pain. If there is pain a t the anatomic snuff box, nuclear medicine bone scan can be performed for further evaluation. IMPRESSION: 1. Findings suggestive for triquetral avulsion.
--- NOTE | 2021-02-21 17:41 | XR ---
EXAMINATION TYPE: XR ankle complete LT DATE OF EXAM: 02/21/2021 COMPARISON: None HISTORY: Fall, pain TECHNIQUE: Three-view left ankle FINDINGS: There is an oblique fracture through the distal metaphyseal fibula. The ankle mortise is vi sualized is intact. There is prominent soft tissue swelling over the lateral malleolus. No posterior tibial fractures are evident. Plantar and Achilles tendon calcaneal heel spurs are present. On the lateral projection there is some lucency which appears to lie within the cortex of the posteri or inferior cuboid. If there is pain within the foot, additional x-rays of the left foot could be per formed. IMPRESSION: 1. Oblique fracture distal metaphyseal fibula with soft tissue swelling. 2. Small avulsion at the cuboid cannot be excluded. If there is pain in the foot, and film x-rays of the foot can be performed.
--- NOTE | 2021-02-21 18:40 | CT ---
EXAMINATION TYPE: CT shoulder LT wo con DATE OF EXAM: 02/21/2021 COMPARISON: Shoulder 03/03/2021 HISTORY: Fall today. Abnormal plain films CT DLP: 550.1 mGycm Automated exposure control for dose reduction was used. Contrast: None Technique: Axial images 3 mm thick sections. Reconstructed images in the coronal and sagittal planes. 3-D reconstructed images performed on a separate computer by the technologist reviewed FINDINGS: There is avulsion of the greater tuberosity. This is rotated to lie posterior to the head of the maya cori. There is a fracture through the neck of the humerus which may be impacted into the humeral head. The humeral head articulates with the glenoid. The acromioclavicular junction appears normal. Clavicl e appears intact. Scapula appears intact. IMPRESSION: 1. IMPACTED FRACTURE THROUGH THE NECK OF THE HUMERUS INTO THE HUMERAL HEAD. 2. AVULSION OF THE GREATER TUBEROSITY WITH DISPLACEMENT OF THE FRACTURE FRAGMENT POSTERIOR TO THE HUM ERAL HEAD.
[2021-02-21] MEDS ORDERED: NALOXONE 0.4 MG/ML 1 ML VIAL IV PRN (18:49)
--- NOTE | 2021-02-21 18:52 | ED ---
Fall HPI - General Chief Complaint: Fall Stated Complaint: fall right side pain Time Seen by Provider: 02/21/21 16:33 Source: patient Mode of arrival: ambulatory - History of Present Illness Initial Comments: 65yo female presenting to the emergency department today for chief complaint of fall. Patient states that she tripped and rolled her ankle inward. This caused her fall onto her left side. Patient states she has left wrist, shoulder and ankle pain. denies left knee or hip pain. denies head injury, blood thinner use, neck pain, LOC, nausea, vomiting, headache, visual changes, numbness or weakness of her extremities. Pt states she has severe left shoulder/arm pain, and left ankle swelling. She states she can weight bear on the left ankle with some discomfort. Patient has no additional complaints and appears nontoxic on arrival in the ER. - Related Data Home Medications Medication Instructions Recorded Confirmed Multivitamins, Thera [Multivitamin 1 tab PO DAILY 09/29/19 02/21/21 (formulary)] Albuterol Sulfate [Ventolin HFA] 1 - 2 puff INHALATION RT-QID PRN 02/21/21 02/21/21 Magnesium Oxide [Magox 400] 400 mg PO DAILY 02/21/21 02/21/21 Methylsulfonylmethane [MSM] 900 mg PO DAILY 02/21/21 02/21/21 Allergies Allergy/AdvReac Type Severity Reaction Status Date / Time naproxen Allergy Swelling Verified 02/21/21 17:57 Quinazolinones Allergy Rapid Verified 02/21/21 17:57 Heart Rate Quinolones Allergy Unknown Verified 02/21/21 17:57 acetaminophen [From Vicodin] AdvReac Itching Verified 02/21/21 17:57 hydrocodone bitartrate AdvReac Itching Verified 02/21/21 17:57 [From Vicodin] Review of Systems ROS Statement: Those systems with pertinent positive or pertinent negative responses have been documented in the HPI. ROS Other: All systems not noted in ROS Statement are negative. Past Medical History Past Medical History: GERD/Reflux, Osteoarthritis (OA), Thyroid Disorder Additional Past Medical History / Comment(s): lupus, osteoporosis, hiatal hernia, diverticulosis, nodules on thyroid History of Any Multi-Drug Resistant Organisms: None Reported Past Surgical History: Tubal Ligation Additional Past Surgical History / Comment(s): colonoscopy,egd Past Anesthesia/Blood Transfusion Reactions: No Reported Reaction Past Psychological History: No Psychological Hx Reported Smoking Status: Never smoker Past Alcohol Use History: None Reported Past Drug Use History: None Reported - Past Family History Sister(s) Family Medical History: Thyroid Disorder General Exam - General Exam Comments Initial Comments: General: The patient is awake and alert, in no distress Eye: +3 mm pupils are equal, round and reactive to light, extra-ocular movements are intact. No nystagmus. There is normal conjunctiva bilaterally. No signs of icterus. Ears, nose, mouth and throat: There are moist mucous membranes and no oral lesions. Neck: The neck is supple, there is no tenderness or JVD. Cardiovascular: There is a regular rate and rhythm. No murmur, rub or gallop is appreciated. Respiratory: Lungs are clear to auscultation, respirations are non-labored, breath sounds are equal. No wheezes, stridor, rales, or rhonchi. Gastrointestinal: Soft, non-distended, non-tender abdomen without masses or organomegaly noted. There is no rebound or guarding present. No CVA tenderness. Musculoskeletal: Some pain and swelling of the left wrist full range of motion there is some snuffbox tenderness. Patient refuses to range the left shoulder at all. Patient has no pain no patient at the left elbow full range of motion. Patient has ability to do the fingers crossed thumbs-up oppose the small digit and thumb and give and flex and extend at the left wrist without difficulty. Patient has some lateral malleolus swelling/pain on the left ankle no medial malleolus tenderness. Normal ROM, no tenderness of the right extremities. Strength 5/5 at the wrist/hand. Sensation intact of the UE b/l including badge region. Radial and DP pulses equal bilaterally 2+. Neurological: A&O x 3. CN II-XII intact grossly, There are no obvious motor or sensory deficits. Coordination appears grossly intact. Speech is normal. Skin: Skin is warm and dry and no rashes or lesions are noted. Psychiatric: Cooperative, appropriate mood & affect, normal judgment. Limitations: no limitations Course Vital Signs 02/21/21 02/21/21 02/21/21 15:34 18:46 19:17 Temperature 98.2 F Pulse Rate 71 72 72 Respiratory 20 16 16 Rate Blood Pressure 137/89 143/87 145/79 O2 Sat by Pulse 98 98 98 Oximetry 02/21/21 23:00 Temperature Pulse Rate 65 Respiratory 18 Rate Blood Pressure 113/86 O2 Sat by Pulse 98 Oximetry Medical Decision Making - Medical Decision Making Labs stable. XR revealed proximal humeral head fracture, wrist fracture, left distal fibula fracture. Patient was splinted at the wrist and the ankle. Imaging studies were revealed by orthopedic surgery was agreeable to admission for further evaluation and possible surgical intervention.. Patient's pain control currently, patient agreeable to admission. Attending agreeable to care plan. - Lab Data Result diagrams: 02/21/21 19:15 02/21/21 19:15 Lab Results 02/21/21 02/21/21 Range/Units 19:15 19:15 WBC 10.7 H (3.8-10.6) k/uL RBC 4.89 (3.80-5.40) m/uL Hgb 14.9 (11.4-16.0) gm/dL Hct 43.0 (34.0-46.0) % MCV 87.9 (80.0-100.0) fL MCH 30.5 (25.0-35.0) pg MCHC 34.7 (31.0-37.0) g/dL RDW 12.3 (11.5-15.5) % Plt Count 371 (150-450) k/uL MPV 7.0 Neutrophils % 88 % Lymphocytes % 7 % Monocytes % 4 % Eosinophils % 0 % Basophils % 0 % Neutrophils # 9.4 H (1.3-7.7) k/uL Lymphocytes # 0.8 L (1.0-4.8) k/uL Monocytes # 0.4 (0-1.0) k/uL Eosinophils # 0.0 (0-0.7) k/uL Basophils # 0.0 (0-0.2) k/uL Sodium 138 (137-145) mmol/L Potassium 4.2 (3.5-5.1) mmol/L Chloride 106 (98-107) mmol/L Carbon Dioxide 25 (22-30) mmol/L Anion Gap 7 mmol/L BUN 15 (7-17) mg/dL Creatinine 0.69 (0.52-1.04) mg/dL Est GFR (CKD-EPI)AfAm >90 (>60 ml/min/1.73 sqM) Est GFR (CKD-EPI)NonAf >90 (>60 ml/min/1.73 sqM) Glucose 109 H (74-99) mg/dL Calcium 9.7 (8.4-10.2) mg/dL Total Bilirubin 0.4 (0.2-1.3) mg/dL AST 22 (14-36) U/L ALT 17 (4-34) U/L Alkaline Phosphatase 82 (38-126) U/L Total Protein 7.4 (6.3-8.2) g/dL Albumin 4.3 (3.5-5.0) g/dL Disposition Clinical Impression: Left humeral fracture, Left fibular fracture, Fracture of triquetrum of left wrist Disposition: ADMITTED IP TO THIS [facility] Condition: Stable Is patient prescribed a controlled substance at d/c from ED?: No Time of Disposition: 18:52 Decision to Admit Reason: Admit from EC Decision Date: 02/21/21 Decision Time: 18:52
[2021-02-21 19:25] LABS: Basophils % (A) 0 %; Eosinophils % (A) 0 %; HGB 14.9 gm/dL (11.4-16.0); Lymphocytes # (A) 0.8 k/uL (1.0-4.8); Lymphocytes % (A) 7 %; MCH 30.5 pg (25.0-35.0); MCHC 34.7 g/dL (31.0-37.0); MCV 87.9 fL (80.0-100.0); Monocytes # (A) 0.4 k/uL (0-1.0); Monocytes % (A) 4 %; Neutrophils # (A) 9.4 k/uL (1.3-7.7); Neutrophils % (A) 88 %; Platelet Count 371 k/uL (150-450); RBC 4.89 m/uL (3.80-5.40); RDW 12.3 % (11.5-15.5); WBC 10.7 k/uL (3.8-10.6)
[2021-02-21 19:44] LABS: AST 22 U/L (14-36); African American GFR (CKD) >90 (>60 ml/min/1.73 sqM); Albumin 4.3 g/dL (3.5-5.0); Anion Gap 7 mmol/L; Carbon Dioxide 25 mmol/L (22-30); Chloride 106 mmol/L (98-107); Non-African American GFR(CKD) >90 (>60 ml/min/1.73 sqM); Potassium 4.2 mmol/L (3.5-5.1); Sodium 138 mmol/L (137-145); Total Bilirubin 0.4 mg/dL (0.2-1.3); Total Protein 7.4 g/dL (6.3-8.2)
[2021-02-21 19:57] LABS: ALT 17 U/L (4-34); Alkaline Phosphatase 82 U/L (38-126); Blood Urea Nitrogen 15 mg/dL (7-17); Calcium 9.7 mg/dL (8.4-10.2); Glucose 109 mg/dL (74-99)
[2021-02-21] MEDS: HYDROmorphone 0.5 MG/0.5 ML SYRINGE IVP PRN (22:28)
[2021-02-21] MEDS: SODIUM CHLORIDE 0.9% 1,000 ML IV SCH (22:29)
[2021-02-22] MEDS: HYDROmorphone 0.5 MG/0.5 ML SYRINGE IVP PRN ×5 (02:21→23:38)
--- NOTE | 2021-02-22 13:31 | P.CNOR ---
History of Present Illness - HPI Consult date: 02/22/21 Consult reason: fracture History of present illness: Patient is seen and examined at bedside. She is a pleasant 65-year-old female who sustained an injury when she tripped over a rock and fell onto her left side. She says she had severe pain at her shoulder wrist and ankle. She denies any loss of consciousness. She denies any prior significant problems with her shoulder risks her ankle in the past. She is normally a community ambulate or without any assistance. She presented to the emergency room was found have a number of injuries including a fracture proximal humerus fracture at her carpus on the left and a fractured her left ankle. She was unable to mobilize given her multiple fractures and unable to use assistive devices and is essentially incapacitated due to her injuries and had to be kept in the hospital. She denies any fevers chills. She denies any headaches or fevers. She denies any chest pain or shortness of breath. She complains of pain in her shoulder and her ankle. And some pain at her wrist as well. She has pain whenever she tries to move her shoulder has very great difficulty trying to get up and mobilize even in bed. She denies any numbness tingling. Review of Systems As stated per HPI. Denies chest pain shortness breath. Denies any tingling upper or lower extremity. Denies any change in bowel bladder function. Denies any loss consciousness or neck pain. Past Medical History Past Medical History: GERD/Reflux, Osteoarthritis (OA), Thyroid Disorder Additional Past Medical History / Comment(s): lupus, osteoporosis, hiatal hernia, diverticulosis, nodules on thyroid History of Any Multi-Drug Resistant Organisms: None Reported Past Surgical History: Back Surgery, Orthopedic Surgery, Tubal Ligation Additional Past Surgical History / Comment(s): colonoscopy,egd, previous right humerus fracture, previous spinal surgery Past Anesthesia/Blood Transfusion Reactions: No Reported Reaction Past Psychological History: No Psychological Hx Reported Smoking Status: Never smoker Past Alcohol Use History: None Reported Past Drug Use History: None Reported - Past Family History Sister(s) Family Medical History: Thyroid Disorder Medications and Allergies Home Medications Medication Instructions Recorded Confirmed Type Multivitamins, Thera [Multivitamin 1 tab PO DAILY 09/29/19 02/21/21 History (formulary)] Albuterol Sulfate [Ventolin HFA] 1 - 2 puff INHALATION RT-QID PRN 02/21/21 02/21/21 History Magnesium Oxide [Magox 400] 400 mg PO DAILY 02/21/21 02/21/21 History Methylsulfonylmethane [MSM] 900 mg PO DAILY 02/21/21 02/21/21 History Allergies Allergy/AdvReac Type Severity Reaction Status Date / Time naproxen Allergy Swelling Verified 02/21/21 17:57 Quinazolinones Allergy Rapid Verified 02/21/21 17:57 Heart Rate Quinolones Allergy Unknown Verified 02/21/21 17:57 acetaminophen [From Vicodin] AdvReac Itching Verified 02/21/21 17:57 hydrocodone bitartrate AdvReac Itching Verified 02/21/21 17:57 [From Vicodin] Physical Examination Osteopathic Statement: *. No significant issues noted on an osteopathic structural exam other than those noted in the History and Physical/Consult. - Shoulder left Appearance: swelling Tenderness with palpation: anterior (At her left shoulder should there is some mild swelling. She has significant pain with any palpation around her left shoulder. There is no obvious deformity visualization. She has great tenderness with any palpation around her shoulder proximal humerus. She has pain with any sort of motion at he), posterior, superior - Wrist & Hand left Location of pain: volar wrist Wrist pain modifiers: with motion (At her left wrist there is no significant swelling. There is some tenderness over her carpus. Particularly at the volar aspect. Her fingers move well her compartments are soft. There is no obvious deformity. Her her forearm is nontender her elbows nontender. She has pain whenever she moves her) - Ankle & Foot left Ankle appearance: swelling Foot appearance: swelling Foot swelling: lateral Tenderness with palpation: lateral ankle (At her left ankle she has no pain at the medial malleolus. No pain over the deltoid ligament. There is no severe pain over the syndesmosis and a negative squeeze test. She has significant tenderness to palpation over the lateral malleolus. There is no pain in her forefoot or toes. She has some ), anterolateral ankle (There is some ecchymosis around her lateral malleolus. Sensory is intact. There is no open wounds lacerations or abrasions.) Results - Labs Labs: Abnormal Lab Results - Last 24 Hours (Table) 02/21/21 02/21/21 Range/Units 19:15 19:15 WBC 10.7 H (3.8-10.6) k/uL Neutrophils # 9.4 H (1.3-7.7) k/uL Lymphocytes # 0.8 L (1.0-4.8) k/uL Glucose 109 H (74-99) mg/dL H & H 02/21/21 Range/Units 19:15 Hgb 14.9 (11.4-16.0) gm/dL Hct 43.0 (34.0-46.0) % Result Diagrams: 02/21/21 19:15 02/21/21 19:15 - Diagnostic results Shoulder x-ray: report reviewed, image reviewed (Proximal my humerus three-part fracture with impaction of the humeral neck and avulsion of the greater tuberosity. Glenohumeral joint is intact.) Wrist/Hand x-ray: report reviewed, image reviewed (There appears to be a volar avulsion fracture at the triquetrum. There is no dislocation. There is no evidence of fracture at the distal radius.) Ankle/Foot x-ray: report reviewed, image reviewed (At the left ankle there is a oblique lateral malleolus fracture below the syndesmosis. There is no apparent syndesmotic widening. There is no fractured medial malleolus. The ankle mortise appears to be intact and equal.) Assessment and Plan Assessment: Multiple traumatic fractures due to fall, acute Acute left proximal humerus 3 part fracture at her shoulder closed and neurologically intact Acute left triquetral fracture due to fall, neurologically intact Acute left lateral malleolus ankle fracture with neurovascularly intact status post Pain due to multiple fractures Plan: Multiple traumatic fractures due to fall, acute Acute left proximal humerus 3 part fracture at her shoulder closed and neurologically intact Acute left triquetral fracture due to fall, neurologically intact Acute left lateral malleolus ankle fracture with neurovascularly intact status post Pain due to multiple fractures The patient has multiple fractures which are going to make it very difficult for her to mobilize on her own. With her proximal humerus and wrist fracture she will not be able to bear weight on her left upper extremity. And with her left ankle fracture she will not be able to wear weight weight on her left lower ext remity. This circumstance will make it very difficult for use of any assistive device for her mobility. At bedside today we placed her in a well-padded well molded short leg cast. We'll plan for continued conservative care of her left ankle as she should heal well at her lateral malleolus. She does not have any pain or evidence of fracture at the medial malleolus and she should be able to do well without surgical intervention. If there is displacement upon follow-up we would consider surgical intervention if necessary. She should remain nonweightbearing on left lower extremity and should keep the cast intact and continue with elevation of the left lower extremity. For her left wrist she has a small avulsion fracture at the triquetrum. This can do well with conservative treatment and we'll place her in a removable wrist splint to help protect this as it heals. We do not plan any surgical intervention for this. At her left proximal humerus, she has a 3 part fracture without dislocation. This is certainly causing her significant pain whenever she tries to mobilize and she will not be able to put any weight on that left her with extremity as this fracture heals. This would make it very difficult for her to try to get around given her left ankle fracture. We'll place her in a shoulder immobilizer for now and see how she is able to do with some limited mobilization and t ransfers. She may need a wheelchair and assisted devices for home after discharge. She may need inpatient [facility] facility for continued strengthening before returning home versus possibly home health. Case management has been involved case and will continue to make plans accordingly as the patient attempt some physical therapy for improvement. We discussed the possibility of surgical intervention at her proximal humerus. For the time being we will continue with some conservative care and determine if further intervention will be necessary based on her ability to improve and healing of the area. We discussed this with her at length at bedside and she seems to understand. We'll have physical therapy see her for some mobilization we'll obtain a shoulder mobilizer for her left upper extremity as well as a wrist splint in addition to the catheter was placed at bedside on her left ankle. Time with Patient: Greater than 30
[2021-02-22] MEDS ORDERED: CALCIUM CARBONATE 500 MG CHEWABLE PO PRN (17:33)
[2021-02-22] MEDS: SODIUM CHLORIDE 0.9% 1,000 ML IV SCH (20:13)
[2021-02-23] MEDS: HYDROmorphone 0.5 MG/0.5 ML SYRINGE IVP PRN ×3 (05:04→17:00)
--- NOTE | 2021-02-23 11:36 | P.PN ---
Progress Note - Text Progress Note Date: 02/23/21 Orthopedics: History of present illness: Patient is seen and examined at bedside for follow-up evaluation for her multiple injuries status post fall. She fell on 02/21/2021 resulting in fractures to her left proximal humerus, left triquetral fracture, and left lateral malleolus fracture. She was placed in a short leg cast for her left lateral malleolus fracture yesterday. A removable splint has been placed at her left wrist and a shoulder immobilizer has been placed for her left shoulder. She is nonweightbearing on the left upper extremity and lower extremity. She has had some difficulty with pain control and she is receiving IV Dilaudid. Her left shoulder pain is currently her most significant pain. He feels some muscle soreness. She is unsure if at the time of discharge she would be willing for discharge to a rehabilitation facility or home with home care. She states she could stay with her daughter while she heals. She is eating and voiding without difficulty. She does have an external catheter in place to her difficulty mobilization. Physical Exam: Patient is awake, alert, and oriented 3 Vital signs stable Good chest excursion with deep inspiration and expiration External catheter in place Left lower extremity short leg cast and placed Left lower extremity cast is clean, dry, intact Patient is able to wiggle toes of the left foot without significant difficulty No pain with palpation of the left toes were left knee Removable splint intact at the left wrist Shoulder immobilizer intact at the left upper extremity Some generalized swelling over the left shoulder Evidence of some bruising over the posterior left shoulder Pain with palpation or any gentle movement of the left shoulder Patient is able to wiggle fingers of the left hand without significant difficulty Neurovascularly intact left upper extremity and lower extremity Assessment: Status post fall on 02/21/2021 Multiple traumatic fractures due to fall Acute left proximal humerus 3 part fracture Acute left triquetral fracture Acute left lateral malleolus fracture Pain due to multiple fractures Plan: 1. Since being seen and examined yesterday, a removable splint for the left wrist and hand as well as a left shoulder immobilizer has been placed. A short leg cast was placed over the left lower extremity at the bedside yesterday. Patient continues to be nonweightbearing on the left upper extremity and left lower extremity. She should keep the cast over the left lower extremity clean, dry, and intact. She may elevate her left lower extremity for comfort support as needed. She may place ice over the cast for comfort as needed. She should avoid activity or significant range of motion with her left upper extremity. Her pain is being controlled with IV Dilaudid. We will plan to add Tylenol #3 1 tab every 4 hours as needed for pain. Patient states she is taken this medicine in the past with benefit. We'll also plan and cyclobenzaprine 10 mg 3 times a day as needed for muscle spasm. Patient will remain in the hospital until least tomorrow, 02/24/2021. We will plan for her to be evaluated by case management tomorrow. We will then plan for her to be discharged to a rehabilitation facility or possibly home with home care. She will have significant difficulty with mobility and ambulation and transfers due to her multiple fractures. We did discuss if she were to be transferred home with home care we would plan to obtain a wheelchair prior to her discharge home. We will continue to follow patient closely.
[2021-02-23] MEDS ORDERED: ONDANSETRON 4 MG/2 ML VIAL IVP PRN (11:44)
[2021-02-23] MEDS: BACLOFEN 10 MG TAB PO PRN ×2 (12:08→20:35)
[2021-02-23] MEDS: Acetaminophen-Codeine 300-30mg TAB PO PRN ×2 (14:58→20:35)
[2021-02-23] MEDS: SODIUM CHLORIDE 0.9% 1,000 ML IV SCH (20:36)
[2021-02-24] MEDS: Acetaminophen-Codeine 300-30mg TAB PO PRN ×2 (06:04→13:37)
[2021-02-24] MEDS: BACLOFEN 10 MG TAB PO PRN (06:05)
[2021-02-24] MEDS: HYDROmorphone 0.5 MG/0.5 ML SYRINGE IVP PRN ×3 (08:01→21:16)
[2021-02-24] MEDS: SODIUM CHLORIDE 0.9% 1,000 ML IV SCH (08:09)
[2021-02-24] MEDS ORDERED: HYDROcodone/APAP 5-325MG 1 EACH TAB PO PRN (14:43)
--- NOTE | 2021-02-24 14:43 | P.PN ---
<Simon Saunders - Last Filed: 02/24/21 14:41> Progress Note - Text Progress Note Date: 02/24/21 Orthopedics: History of present illness: Patient is seen and examined at bedside for follow-up evaluation for her multiple injuries status post fall. She fell on 02/21/2021 resulting in fractures to her left proximal humerus, left triquetral fracture, and left lateral malleolus fracture. She was placed in a short leg cast for her left lateral malleolus fracture yesterday. A removable splint has been placed at her left wrist and a shoulder immobilizer has been placed for her left shoulder. She is nonweightbearing on the left upper extremity and lower extremity. She seems to have some difficulty of pain control. She continues to state that her left shoulder is currently her most significant pain. He feels some muscle soreness. She has been seen by social work. She needs a prior authorization to be discharged to a rehabilitation facility. She continues to discuss discharge planning with her daughter in regards to discharge to a rehabilitation facility versus home with home health services. She does have some concern whether she'll be able to care for herself at home but does state her daughter would be willing to help her. She is eating and voiding without difficulty. She does have an external catheter in place to her difficulty mobilization. Physical Exam: Patient is awake, alert, and oriented 3 Vital signs stable Good chest excursion with deep inspiration and expiration External catheter in place Left lower extremity short leg cast and placed Left lower extremity cast is clean, dry, intact Patient is able to wiggle toes of the left foot without significant difficulty No pain with palpation of the left toes were left knee Removable splint intact at the left wrist Shoulder immobilizer intact at the left upper extremity Some generalized swelling over the left shoulder Evidence of some bruising over the posterior left shoulder Pain with palpation or any gentle movement of the left shoulder Patient is able to wiggle fingers of the left hand without significant difficulty Neurovascularly intact left upper extremity and lower extremity Assessment: Status post fall on 02/21/2021 Multiple traumatic fractures due to fall Acute left proximal humerus 3 part fracture Acute left triquetral fracture Acute left lateral malleolus fracture Pain due to multiple fractures Plan: 1. We will continue with our plan as set forth yesterday in terms of her mobility and weightbearing status. She continues to keep a removable splint for the left wrist and hand, shoulder immobilizer for the left shoulder, and a short leg cast for the left lower extremity intact. Patient continues to be nonweightbearing on the left upper extremity and left lower extremity. She should keep the cast over the left lower extremity clean, dry, and intact. She may elevate her left lower extremity for comfort support as needed. She may place ice over the cast for comfort as needed. She should avoid activity or significant range of motion with her left upper extremity. She is encouraged to continue working with physical therapy for transferring. 2. He has continued to have some difficulty with pain control. Yesterday she was prescribed Tylenol #3 1 tab every 4 hours as needed for pain. He does not feel her pain has been heavily controlled. She does continue to receive baclofen 10 mg 3 times a day as needed for muscle spasm. She states previously she had an itching sensation after taking Vicodin. She states today that was 25 years ago. She states she did not break out in a rash at that time. She states she would be willing to take a different medication to see feel better help control her pain. We did discuss we will plan to prescribe Stratton 5 mg/325 mg 1 tab every 4-6 hours as needed for pain. She may continue take this medication as needed for pain as long as she does not have any adverse side effects. If she does experience rash, itching, or other adverse reaction we will discontinue this medication. I did discuss this in detail with the patient and she states she would like to proceed with taking Stratton 5 mg/325 mg. 3. Patient is still debating whether to be transferred to a rehabilitation facility or home with home health services. [facility] has been working on obtaining prior authorization for discharge to rehabilitation facility. Application was submitted today. They're hoping for approval as early as tomorrow, 02/25/2021. 4. We'll plan to consult her primary care provider, Dr. Wei, for medical management. 5. We will continue to follow the patient closely. <Sharifa Landry - Last Filed: 02/24/21 15:22> Progress Note - Text The patient is seen and examined at bedside. Her cast at her left leg is stable and her wrist is doing well with her brace. Her shoulder immobilizer is intact but she still has significant pain at her left shoulder with any sort of motion. It is very difficult for her to mobilize with her left foot and left upper extremity on nonweightbearing status and we again discussed the benefit of care home with her. She is not yet fully decided but she is not able to mobilize on her own. Hopefully she'll be able to improve her mobility or be transferred to care home tomorrow.
--- NOTE | 2021-02-24 19:49 | P.CONS ---
History of Present Illness - Reason for Consult Consult date: 02/24/21 Medical management Requesting physician: Sharifa Landry - Chief Complaint Fracture left ankle left humerus left wrist after fall - History of Present Illness This is a 65-year-old pleasant female one of my clinic patient, lupus, osteoporosis, diverticular disease, thyroid nodules who had fallen down and tripped on February 21 twisted her ankle,, sustaining injury in the left side of the body,, when seen in emergency room, she complains of the left wrist pain and left shoulder pain and left ankle pain, x-rays shows fracture based on CT imaging, impacted fracture to the left neck of humerus into humeral head, avulsion of the greater tuberosity with displacement of fracture fragment posterior to the humeral head avulsion from a routine x-ray shows oblique fracture distal metaphysis fibula with soft tissue swelling, small bluish and cuboid cannot be excluded routine x-rays shows right collateral avulsion left wrist. Patient was placed on a short leg cast, on February 23, a removable splint was placed on left wrist, shoulder immobilizer on the left shoulder. Nonweigh tbearing on the left upper extremity and lower extremity. Discharge planning is in progress, patient might need rehab to subacute or inpatient, against home services Consult were made by orthopedics, for medical management., Lab review shows wbc count of 10.7, hemoglobin 14.9, glucose 109, creatinine normal 0.69, no urinalysis done, is negative. Vital signs normal, no fever T-max at 98.6 blood pressure normal stable heart rate is normal. Review of Systems Constitutional: Reports as per HPI, Reports weakness, Denies anorexia, Denies chills, Denies chronic headaches, Denies chronic pain, Denies daytime sleepiness, Denies fatigue, Denies fever, Denies lethargy, Denies malaise, Denies night sweats, Denies poor appetite, Denies sweats, Denies weight gain, Denies weight loss Ears, nose, mouth and throat: Reports as per HPI Cardiovascular: Reports as per HPI, Denies chest pain, Denies claudication, D enies decreased exercise tolerance, Denies dyspnea on exertion, Denies edema, Denies high blood pressure, Denies irregular heart beat, Denies leg edema, Denies lightheadedness, Denies orthopnea, Denies palpitations, Denies paroxysmal nocturnal dyspnea, Denies phlebitis, Denies rapid heart beat, Denies shortness of breath, Denies syncope Respiratory: Reports as per HPI, Denies congestion, Denies cough, Denies cough with sputum, Denies dyspnea, Denies excessive sputum, Denies hemoptysis, Denies home oxygen, Denies pain, Denies pain on inspiration, Denies pleurisy, Denies respiratory infections, Denies sleep apnea, Denies snoring, Denies wheezing Gastrointestinal: Reports as per HPI, Denies abdominal pain, Denies belching, Denies bloating, Denies BRBPR, Denies change in bowel habits, Denies coffee ground emesis, Denies constipation, Denies diarrhea, Denies dyspepsia, Denies early satiety, Denies excessive gas, Denies heartburn, Denies hematemesis, Denies hematochezia, Denies indigestion, Denies jaundice, Denies lactose intolerance, Denies loss of appetite, Denies melena, Denies nausea, Denies vomiting Genitourinary: Reports as per HPI Menstruation: Reports as per HPI, Reports cycle > 35 days, Reports postmenopausal Musculoskeletal: Reports fractures, Reports limitation of motion Musculoskeletal: left: ankle pain, foot pain, foot swelling, shoulder pain, shoulder swelling, wrist swelling Integumentary: Reports as per HPI Neurological: Reports as per HPI, Denies aphasia, Denies ataxia, Denies balance difficulties, Denies burning pain, Denies change in mentation, Denies change in smell/taste, Denies change in speech, Denies confusion, Denies convulsions, Denies double vision, Denies gait dysfunction, Denies head injury, Denies headaches, Denies hearing difficulties, Denies lack of coordination, Denies loss of vision, Denies memory loss, Denies migraines, Denies motor disturbance, Denies numbness, Denies paralysis, Denies paresthesias, Denies seizures, Denies sensory deficit, Denies spasticity, Denies syncope, Denies tic, Denies tingling, Denies transient paralysis, Denies tremors, Denies vertigo, Denies weakness, Denies visual changes Psychiatric: Reports as per HPI Endocrine: Reports as per HPI Hematologic/Lymphatic: Reports as per HPI Allergic/Immunologic: Reports as per HPI Past Medical History Past Medical History: GERD/Reflux, Osteoarthritis (OA), Thyroid Disorder Additional Past Medical History / Comment(s): lupus, osteoporosis, hiatal hernia, diverticulosis, nodules on thyroid History of Any Multi-Drug Resistant Organisms: None Reported Past Surgical History: Back Surgery, Orthopedic Surgery, Tubal Ligation Additional Past Surgical History / Comment(s): colonoscopy,egd, previous right humerus fracture, previous spinal surgery Past Anesthesia/Blood Transfusion Reactions: No Reported Reaction Past Psychological History: No Psychological Hx Reported Smoking Status: Never smoker Past Alcohol Use History: None Reported Past Drug Use History: None Reported - Past Family History Sister(s) Family Medical History: Thyroid Disorder Medications and Allergies Home Medications Medication Instructions Recorded Confirmed Type Multivitamins, Thera [Multivitamin 1 tab PO DAILY 09/29/19 02/21/21 History (formulary)] Albuterol Sulfate [Ventolin HFA] 1 - 2 puff INHALATION RT-QID PRN 02/21/21 02/21/21 History Magnesium Oxide [Magox 400] 400 mg PO DAILY 02/21/21 02/21/21 History Methylsulfonylmethane [MSM] 900 mg PO DAILY 02/21/21 02/21/21 History Allergies Allergy/AdvReac Type Severity Reaction Status Date / Time naproxen Allergy Swelling Verified 02/21/21 17:57 Quinazolinones Allergy Rapid Verified 02/21/21 17:57 Heart Rate Quinolones Allergy Unknown Verified 02/21/21 17:57 acetaminophen [From Vicodin] AdvReac Itching Verified 02/21/21 17:57 hydrocodone bitartrate AdvReac Itching Verified 02/21/21 17:57 [From Vicodin] Physical Exam Vitals: Vital Signs Temp Pulse Pulse Resp BP Pulse Ox 02/24/21 14:00 98.0 F 75 18 130/85 96 02/24/21 08:00 18 02/24/21 07:18 98.9 F 82 18 106/74 91 L 02/24/21 02:23 98.0 F 77 114/79 92 L 02/23/21 20:32 98.7 F 79 144/91 94 L Intake and Output 02/24/21 02/24/21 02/24/21 06:59 14:59 22:59 Intake Total 200 180 Output Total 175 1300 Balance -175 -1100 180 Intake: Oral 200 180 Output: Urine 175 1300 Other: Voiding Method External Catheter - Constitutional General appearance: average body habitus, cooperative, no acute distress, obese - EENT Eyes: no abnormal pupil, no anicteric sclerae, no disc margins sharp, no edentulous, no EOMI, no PERRLA, no fundus normal, no photophobia, no dentition normal, no poor dentition, no ptosis, no scleral icterus, no normal appearance ENT: NA/AT, normal oropharynx - Neck Neck: normal ROM - Respiratory Respiratory: bilateral: CTA, negative: diminished, dullness, rales - Cardiovascular Rhythm: regular Heart sounds: normal: S1, S2 Abnormal Heart Sounds: no systolic murmur, no diastolic murmur, no rub, no S3 Gallop, no S4 Gallop, no click, no other - Gastrointestinal General gastrointestinal: normal bowel sounds, soft - Integumentary Integumentary: decreased turgor, normal - Neurologic Neurologic: CNII-XII intact - Musculoskeletal Musculoskeletal: gait normal, strength equal bilaterally - Psychiatric Psychiatric: A&O x's 3, appropriate affect, intact judgment & insight Results CBC & Chem 7: 02/21/21 19:15 02/21/21 19:15 Assessment and Plan Plan: 1. Fractures after a traumatic fall on 02/21/2021, involving left proximal humerus, left triquetral, left lateral malleolus without any involvement of loss of consciousness, impaired mobility, uncontrolled pain, patient is on baclofen, and [place] [id number] pain management, along with when necessary Dilaudid. We'll going to add vitamin D, for suspected vitamin D deficiency with postmenopausal fracture 2. Suspected osteoporosis with current fracture, need evaluation for routine bone density in office 3. Asthma without any exacerbation on Proventil when necessary 4. History of lupus, without any active symptoms, not on maintenance prednisone, 5. History of thyroid nodule, follow-up evaluation as outpatient, no dysphagia, check for TSH 6. DVT prophylaxis and GI prophylaxis Thank you Dr. Landry in allowing us to participate in the care. Patient. We're going to follow her with you during this current hospitalization, discharge planning is in progress, will expect supervised care post discharge, as patient is nonweightbearing on the left leg, including the left upper extremity
[2021-02-24] MEDS: CHOLECALCIFEROL 25 MCG (1000 IU) TABLET PO SCH (21:16)
[2021-02-25] MEDS: Acetaminophen-Codeine 300-30mg TAB PO PRN ×3 (02:10→13:37)
[2021-02-25 07:12] VITALS: BP 119/77; PULSE 65; TEMP 98.5
[2021-02-25] MEDS: SODIUM CHLORIDE 0.9% 1,000 ML IV SCH (08:20)
[2021-02-25] MEDS: CHOLECALCIFEROL 25 MCG (1000 IU) TABLET PO SCH (08:30)
[2021-02-25] MEDS: BACLOFEN 10 MG TAB PO PRN (08:30)
[2021-02-25] MEDS ORDERED: SENNOSIDES-DOCUSATE SODIUM 1 EACH TAB PO SCH (09:00)
[2021-02-25 10:53] VITALS: RESP 20
--- NOTE | 2021-02-25 11:47 | P.PN ---
Subjective Progress Note Date: 02/25/21 HISTORY OF PRESENT ILLNESS This is a 65-year-old pleasant female one of my clinic patient, lupus, osteoporosis, diverticular disease, thyroid nodules who had fallen down and tripped on February 21 twisted her ankle,, sustaining injury in the left side of the body,, when seen in emergency room, she complains of the left wrist pain and left shoulder pain and left ankle pain, x-rays shows fracture based on CT imaging, impacted fracture to the left neck of humerus into humeral head, avulsion of the greater tuberosity with displacement of fracture fragment posterior to the humeral head avulsion from a routine x-ray shows oblique fracture distal metaphysis fibula with soft tissue swelling, small bluish and cuboid cannot be excluded routine x-rays shows right collateral avulsion left wrist. Patient was placed on a short leg cast, on February 23, a removable splint was placed on left wrist, shoulder immobilizer on the left shoulder. Nonweightbearing on the left upper extremity and lower extremity. Discharge planning is in progress, patient might need rehab to subacute or inpatient, against home services Consult were made by orthopedics, for medical management., Lab review shows wbc count of 10.7, hemoglobin 14.9, glucose 109, creatinine normal 0.69, no urinalysis done, is negative. Vital signs normal, no fever T-max at 98.6 blood pressure normal stable heart rate is normal. 02/25: Patient has been seen by orthopedics this morning and plan is for discharge to rehab today. Medication reconciliation has been reviewed. Pain is currently controlled. She denies any nausea or vomiting. No chest pain. Patient has been afebrile, heart rate 65, blood pressure 119/77, pulse ox 94% on room air. Patient is scheduled for discharge to [facility] for rehab. REVIEW OF SYSTEMS Constitutional: No fever, no chills, no night sweats. No weight change. No weakness, fatigue or lethargy. No daytime sleepiness. EENT: No headache. No blurred vision or double vision, no loss of vision. No loss of Hearing, no ringing in the ears, no dizziness. No nasal drainage or congestion. No epistaxis. No sore throat. Lungs: No shortness of breath, cough, no sputum production. No wheezing. Cardiovascular: No chest pain, no lower extremity edema. No palpitations. No paroxysmal nocturnal dyspnea. No orthopnea. No lightheadedness or dizziness. No syncopal episodes. Abdominal: No abdominal pain. No nausea, vomiting. No diarrhea. No constipation. No bloody or tarry stools.. No loss of appetite. Genitourinary: No dysuria, increased frequency, urgency. No urinary retention. Musculoskeletal: No myalgias. No muscle weakness, no gait dysfunction, no frequent falls. No back pain. No neck pain. Reports ankle discomfort. Reports left arm discomfort. Integumentary: No wounds, no lesions. No rash or pruritus. No unusual bruising. No change in hair or nails. Neurologic: No aphasia. No facial droop. No change in mentation. No head injury. No headache. No paralysis. No paresthesia. Psychiatric: No depression. No anxiety. No mood swings. Endocrine: No abnormal blood sugars. No weight change. No excessive sweating or thirst. No cold intolerance. PHYSICAL EXAMINATION Gen: This is a 65-year-old female. Patient is resting in recliner and appears to be comfortable and in no acute distress. HEENT: Head is atraumatic, normocephalic. Pupils equal, round. Sclerae is anicteric. NECK: Supple. No JVD. No lymphadenopathy. No thyromegaly. LUNGS: Clear to auscultation. No wheezes or rhonchi. No intercostal retractions. HEART: Regular rate and rhythm. No murmur. ABDOMEN: Soft. Bowel sounds are present. No masses. No tenderness. EXTREMITIES: No pedal edema. No calf tenderness. NEUROLOGICAL: Patient is awake, alert and oriented x3. Cranial nerves 2 through 12 are grossly intact. ASSESSMENT AND PLAN 1. Fractures after a traumatic fall on 02/21/2021, status post acute left proximal humerus fracture, left triquetral fracture, left lateral malleolus fracture. Continue current pain management, continue vitamin D, for suspected vitamin D deficiency with postmenopausal fracture. Continue wrist splint, shoulder immobilizer and short-leg cast. Patient is nonweightbearing on the left upper extremity and left lower extremity. Patient is cleared for discharge from medicine. Medication reconciliation reviewed. 2. Suspected osteoporosis with current fracture, need evaluation for routine bone density in office 3. Asthma without any exacerbation on Proventil when necessary 4. History of lupus, without any active symptoms, not on maintenance prednisone , 5. History of thyroid nodule, follow-up evaluation as outpatient, no dysphagia, check for TSH 6. DVT prophylaxis and GI prophylaxis 7. COVID-19 testing negative. Patient has been hospitalized during a pandemic. DISCHARGE PLAN [facility] for subacute rehab. Impression and plan of care have been directed as dictated by the signing physician. Arlin Diaz nurse practitioner acting as scribe for signing physician. Objective - Vital Signs Vital signs: Vital Signs Temp 98.5 F 02/25/21 07:11 Pulse 65 02/25/21 07:11 Resp 18 02/25/21 07:11 BP 119/77 02/25/21 07:11 Pulse Ox 94 L 02/25/21 07:11 Intake & Output 02/24/21 02/25/21 02/25/21 18:59 06:59 18:59 Intake Total 380 Output Total 1300 700 Balance -920 -700 Intake: Oral 380 Output: Urine 1300 700 Other: Voiding Method External Catheter External Catheter - Labs CBC & Chem 7: 02/21/21 19:15 02/21/21 19:15
--- NOTE | 2021-02-25 12:23 | CDI ---
Documentation Clarification Form Date: 02/25/2021 12:15:17 PM From: Martha Craig CCS, CCDS Admit Date: 02/21/2021 07:18:00 PM Patient Name: Raisa Hartman Visit Number: [id number] Discharge Date: ATTENTION: The Clinical Documentation Specialists (CDI) and [facility] Coding Staff appreciate your assistance in clarifying documentation. Please respond to the clarification below the line at the bottom and electronically sign. The CDI & [facility] Coding staff will review the response and follow-up if needed. Please note: Queries are made part of the Legal Health Record. If you have any questions, please contact the author of this message via ITS. Dr. Inna Wei: Asthma without exacerbation is documented in the 02/25 Medical Consult Progress Note without further specificity. Additional clarification regarding the type of asthma is requested. History/risk factors per the 02/24 Medical Management Consult: Osteoporosis, Asthma on Proventil prn, Lupus without active symptoms, Thyroid Nodule, GERD, Diverticulosis. Non smoker. Clinical Indicators: Presented to the ED on 02/21 after a trip & fall, rolled her left ankle inward & fell onto left side. Complained of pain to left wrist, shoulder & ankle. Admitted with multiple fractures: left humeral head, wrist and distal fibula. Vital Signs: T 98.2, P 71, R 20, BP 137/89, PO 98 RA Radiology: No CXR. (Xrays of Left humerus, shoulder, wrist and ankle) Treatment: IV Dilaudid, IV Zofran, po [place], po Vit D3. Home meds: INH Ventolin, Magox, Methylsulfonylmethane (MSM) Please clarify the type and severity of asthma, if known: [ ] Extrinsic asthma [ ] without exacerbation [ ] Intrinsic asthma [ ] without exacerbation [ ] Mild intermittent asthma [ ] without exacerbation [ ] Mild persistent asthma [ ] without exacerbation [ ] Moderate persistent asthma [ ] without exacerbation [ ] Other, please specify ____ [ ] Unable to determine (Template Last Revised: January 2021) [ x ] Mild persistent asthma [ x ] without exacerbation MTDD
--- NOTE | 2021-02-25 12:32 | P.DS ---
Providers Date of admission: 02/21/21 19:18 Expected date of discharge: 02/25/21 Attending physician: Sharifa Landry Consults: 02/24/21 14:44 Consult Physician Routine Consulting Provider: Inna Wei Consult Reason/Comments: Medical management Do you want consulting provider notified?: Yes Primary care physician: Stated None - Discharge Diagnosis(es) (1) Status post fall Current Visit: Yes Status: Acute (2) Acute traumatic pain Current Visit: Yes Status: Acute (3) Fracture of triquetrum of left wrist Current Visit: Yes Status: Acute (4) Left fibular fracture Current Visit: Yes Status: Acute (5) Left humeral fracture Current Visit: Yes Status: Acute Hospital Course: Discharge This is a pleasant 65-year-old female who presented with multiple traumatic fractures after a fall including acute left proximal humerus 3 part fracture, left triquetral fracture, and left lateral malleolus fracture. She was admitted for further treatment and evaluation. A short leg cast is in place over the left lower extremity. A shoulder immobilizer has been placed for the left upper extremity. A removable splint has been placed at the left wrist. She has had some difficulty with pain control due to medications. She is unable to take hydrocodone due to an ALLERGY which she states makes her itch. She does not breakout and rash. She has not previously tried tramadol but states she would be willing to try this medication for better pain control in the outpatient setting. Her pain is better controlled as compared to her admittance. She has remained strict nonweightbearing on the left upper extremity and left lower extremity. She is being approved for discharge to [facility]. She follows with her primary care provider, Dr. Wei. She sees Dr. Wei will be able to see her while she is admitted to [facility]. Condition on day of discharge stable. She should keep the cast over the left lower extremity clean, dry, and intact. She may elevate her left lower extremity for comfort support as needed. She will remain nonweightbearing on left lower extremity. She may place ice over the cast for comfort as needed. She should avoid activity or significant range of motion with her left upper extremity. She should keep the removable splint intact on the left upper extremity. It may be removed during bathing. She is also encouraged to continue keeping her left upper extremity shoulder immobilizer intact. She is strict nonweightbearing with the left upper extremity. Patient has been seen by medicine as well who have adjusted her discharge medications. MAPS has been reviewed today, 02/25/2021, with an Overall Overdose Risk Score of 110. An "Opiod Start Talking" Form has been signed and placed in the patient's chart. A prescription has been written for Tramadol 1-2 tabs every 6 hours as needed for pain, dispensed #56. Patient given a prescription for baclofen 10 mg 3 times a day as needed for muscle spasm, dispensed #45. She is also given a prescription for acetaminophen 650 mg 1 tab every 6 hours as needed for pain, dispensed #60. Physical Exam on day of discharge: Patient is awake, alert, and oriented 3 Vital signs stable Good chest excursion with deep inspiration and expiration External catheter in place Left lower extremity short leg cast and placed Left lower extremity cast is clean, dry, intact Patient is able to wiggle toes of the left foot without significant difficulty No pain with palpation of the left toes were left knee Removable splint intact at the left wrist Shoulder immobilizer intact at the left upper extremity Some generalized swelling over the left shoulder Evidence of some bruising over the posterior left shoulder Pain with palpation or any gentle movement of the left shoulder Patient is able to wiggle fingers of the left hand without significant difficulty Neurovascularly intact left upper extremity and lower extremity Patient Condition at Discharge: Stable Plan - Discharge Summary Discharge Rx Participant: No New Discharge Prescriptions: New Sennosides-Docusate Sodium [Senokot-S] 2 each PO DAILY tab Baclofen [Lioresal] 10 mg PO TID PRN #45 tablet PRN Reason: Muscle Spasm Calcium Carbonate [Tums] 500 mg PO QID PRN chew PRN Reason: Heartburn Cholecalciferol [Vitamin D3 (25 Mcg = 1000 Iu)] 100 mcg PO DAILY tablet Acetaminophen [Acetaminophen ER] 650 mg PO Q6HR PRN #60 tablet.er PRN Reason: Pain traMADol HCl [Ultram] 50 mg PO Q6H PRN #56 tab PRN Reason: Pain Continue Multivitamins, Thera [Multivitamin (formulary)] 1 tab PO DAILY Magnesium Oxide [Magox 400] 400 mg PO DAILY Albuterol Sulfate [Ventolin HFA] 1 - 2 puff INHALATION RT-QID PRN PRN Reason: Shortness Of Breath Discontinued Methylsulfonylmethane [MSM] 900 mg PO DAILY Discharge Medication List Multivitamins, Thera [Multivitamin (formulary)] 1 tab PO DAILY 09/29/19 [History] Albuterol Sulfate [Ventolin HFA] 1 - 2 puff INHALATION RT-QID PRN 02/21/21 [History] Magnesium Oxide [Magox 400] 400 mg PO DAILY 02/21/21 [History] Acetaminophen [Acetaminophen ER] 650 mg PO Q6HR PRN #60 tablet.er 02/25/21 [Rx] Baclofen [Lioresal] 10 mg PO TID PRN #45 tablet 02/25/21 [Rx] Calcium Carbonate [Tums] 500 mg PO QID PRN chew 02/25/21 [Rx] Cholecalciferol [Vitamin D3 (25 Mcg = 1000 Iu)] 100 mcg PO DAILY tablet 02/25/21 [Rx] Sennosides-Docusate Sodium [Senokot-S] 2 each PO DAILY tab 02/25/21 [Rx] traMADol HCl [Ultram] 50 mg PO Q6H PRN #56 tab 02/25/21 [Rx] Follow up Appointment(s)/Referral(s): Simon Saunders, PAC [PHYSICIAN LEAD ANDROID DEVELOPER] - 1 Week (Patient may follow-up with Simon Saunders PA-C or Dr. Alfredo Landry at [facility] in 1-2 weeks following discharge. ) None,Stated [Primary Care Provider] - 1-2 days Activity/Diet/Wound Care/Special Instructions: 1. Strict nonweightbearing on the left lower extremity and left upper extremity 2. Keep cast over the left lower extremity clean, dry, and intact 3. Elevate the left lower extremity to comfort support as needed 4. May place ice over the left cast for comfort support as needed 5. Keep left shoulder immobilizer intact at all times; patient may remove elbow from immobilizer to work on gentle range of motion of her left elbow 6. Keep removable splint intact at all times at the left wrist except while bathing 7. Take medications as prescribed Discharge Disposition: TRANSFER TO SNF/ECF
--- NOTE | 2021-02-25 12:36 | CDI ---
Documentation Clarification Form Date: 02/25/2021 12:27:00 PM From: Martha CraigJEET castelan, CCDS Admit Date: 02/21/2021 07:18:00 PM Patient Name: Raisa Hartman Visit Number: [id number] Discharge Date: ATTENTION: The Clinical Documentation Specialists (CDI) and [facility] Coding Staff appreciate your assistance in clarifying documentation. Please respond to the clarification below the line at the bottom and electronically sign. The CDI & [facility] Coding staff will review the response and follow-up if needed. Please note: Queries are made part of the Legal Health Record. If you have any questions, please contact the author of this message via ITS. Dr. William Landry: Per the 02/24 Medical Consult: "Suspected osteoporosis with current fracture, need evaluation for routine bone density in office." Additional information regarding the patient's fracture & diagnosis of osteoporosis is requested. History/risk factors per the 02/24 Medical Management Consult: Osteoporosis, Asthma on Proventil prn, Lupus without active symptoms, Thyroid Nodule, GERD, Diverticulosis. Non smoker. Clinical Indicators: Presented to the ED on 02/21 after a trip & fall, rolled her left ankle inward & fell onto left side. Complained of pain to left wrist, shoulder & ankle. Admitted with multiple fractures: left humeral head, wrist and distal fibula. Vital Signs: T 98.2, P 71, R 20, BP 137/89, PO 98 RA Radiology: 1) Left Humerus: Suspected avulsion from the humeral head. This could be further evaluated with CT. 2) Left Shoulder: Suspected avulsion of the greater tuberosity. This can be further evaluated with CT. 3) Left Wrist: Findings suggestive for triquetral avulsion. 4) Left Ankle: Oblique fracture distal metaphyseal fibula with soft tissue swelling. Small avulsion at the cuboid cannot be excluded. If there is pain in the foot, and film x-rays of the foot can be performed. 5) CT Left Shoulder: Impacted fracture through the neck of the humerus into the humeral head. Avulsion of the greater tuberosity with displacement of the fracture. Fragment posterior to the humeral head. Treatment: IV Dilaudid 0.5 mg x2, IV Dilaudid 0.5 mg q3H prn, po [place], po Vit D3. Home meds: INH Ventolin, Magox, Methylsulfonylmethane (MSM) Please clarify if the patient's fracture are pathological and the etiology, if known: [ ] Osteoporosis (specify type if known): [ ] Age related [ ] Postmenopausal [ ] Postsurgical malabsorption [ ] Post-traumatic [ ] Other (please specify): [ ] Unable to determine (Template Last Revised: January 2021) patients fracture are acute traumatic injuries. She likely has some osteopenia as well, but her current fractures are traumatic MTDD
== END 2021-02-25 15:40 | DRG 563 ==
LOC: EC 14:56 → 4SSUR 19:18
PROVIDERS: ADMIT Orthopaedic Surgery Orthopaedic Surgery of the Spine; ATTEND Orthopaedic Surgery Orthopaedic Surgery of the Spine
PROC: 2W3RX2Z Immobilization of Left Lower Leg using Cast (ICD-10-PCS; principal; 2021-02-22)
PROC: 2W39XYZ Immobilization of Left Upper Extremity using Other Device (ICD-10-PCS; principal; 2021-02-22)
PROC: 2W3DX1Z Immobilization of Left Lower Arm using Splint (ICD-10-PCS; principal; 2021-02-22)
DX: S42.232A 3-part fracture of surgical neck of left humerus, initial encounter for closed fracture (principal); G89.11 Acute pain due to trauma; Z20.822 Contact with and (suspected) exposure to COVID-19; S42.255A Nondisplaced fracture of greater tuberosity of left humerus, initial encounter for closed fracture; S62.112A Displaced fracture of triquetrum [cuneiform] bone, left wrist, initial encounter for closed fracture; S82.62XA Displaced fracture of lateral malleolus of left fibula, initial encounter for closed fracture; M81.0 Age-related osteoporosis without current pathological fracture; J45.30 Mild persistent asthma, uncomplicated; K21.9 Gastro-esophageal reflux disease without esophagitis; M19.90 Unspecified osteoarthritis, unspecified site; K44.9 Diaphragmatic hernia without obstruction or gangrene; K57.90 Diverticulosis of intestine, part unspecified, without perforation or abscess without bleeding; Z79.899 Other long term (current) drug therapy; Z87.39 Personal history of other diseases of the musculoskeletal system and connective tissue; Z87.81 Personal history of (healed) traumatic fracture; Z98.51 Tubal ligation status; W01.0XXA Fall on same level from slipping, tripping and stumbling without subsequent striking against object, initial encounter; Y93.01 Activity, walking, marching and hiking; Z88.6 Allergy status to analgesic agent; Z88.5 Allergy status to narcotic agent; Z88.8 Allergy status to other drugs, medicaments and biological substances; Z83.49 Family history of other endocrine, nutritional and metabolic diseases; E04.2 Nontoxic multinodular goiter
CPT/HCPCS: 36415; 80053; 84443; 85025; 87635; 96374; 99285

== ENCOUNTER → 2021-05-22 | Outpatient (CLI) | payer MEDICARE, OTHER ==
--- NOTE | 2021-05-23 11:40 | BD ---
EXAMINATION TYPE: Axial Bone Density DATE OF EXAM: 05/22/2021 COMPARISON: NONE CLINICAL HISTORY: Height: 63 Weight: 181.9 FRAX RISK QUESTIONS: Alcohol (3 or more units per day): no Family History (Parent hip fracture): no Glucocorticoids (More than 3mos): no (Ex: prednisone, prednisolone, methylprednisolone, dexamethasone, and hydrocortisone). History of Fracture in Adulthood: yes Secondary Osteoporosis: 1. Type 1 Diabetes: no 2. Hyperthyroidism: no 3. Menopause before 45: no 4. Malnutrition: no 5. Chronic liver disease: no Rheumatoid Arthritis: no Current Tobacco Use: no RISK FACTORS HISTORY OF: Surgery to Spine/Hip(right/left)/Wrist (right/left): no Family History of Osteoporosis: yes Active: sometimes Diet low in dairy products/other sources of calcium: no Postmenopausal woman: age 51 Lost more than 2 inches in height since high school: yes MEDICATIONS: muscle relaxers, pain meds Additional History: EXAM MEASUREMENTS: Bone mineral densitometry was performed using the [employer] System. Bone mineral density as measured about the Lumbar spine is: ----- L1-L4(G/cm2): 0.882 T Score Values are as follows: ----- L2: -3.3 ----- L3: -2.4 ----- L4: -2.0 ----- L1-L4: -2.5 Bone mineral density has: increased 5.4 % since study of: 07.20.2012 Bone mineral density about the R hip (g/cm2): 0.662 Bone mineral density about the L hip (g/cm2): 0.672 T Score values are as follows: -----R Neck: -2.7 -----L Neck: -2.6 -----R Total: -2.8 -----L Total: -2.8 Bone mineral density has: decreased -1.2 % since study of: 09.29.2018 Bone mineral density about the R Wrist (g/cm2): 0.414 T Score values are as follows: -----Dist. R+U: -4.0 -----Prox. R+U: -4.0 -----Radius total: -4.3 Bone mineral density : baseline FRAX Major osteoporotic fracture risk is 37.1% and hip fracture is 7.4% in 10 year probability of fra cture. IMPRESSION: Osteoporosis (T Score less than -2.5). There is increased fracture risk and therapy is usually indicated based on age. Re-Screen 1-2 years. NOTE: T-SCORE=SD OF THE YOUNG ADULT MEAN.
--- NOTE | 2021-05-23 15:01 | MM ---
Reason for exam: additional evaluation requested from prior study. Last mammogram was performed 10 months ago. History: Patient is postmenopausal and has history of high-risk lesion on a previous biopsy at age 64. High risk MG pre op needle loc RT of the right breast, January 09, 2020. High risk MG stereo VAD BX RT of the right breast, October 05, 2019. Benign left US cyst aspiration of the left breast, March 26, 2006. Benign right US cyst aspiration of the right breast, March 26, 2006. Benign US right core biopsy of the right breast, March 26, 2006. Physical Findings: Nurse did not find any significant physical abnormalities on exam. MG 3D Diag Mammo W/Cad SORAIDA Bilateral CC and MLO view(s) were taken. Prior study comparison: July 09, 2020, right breast MG 3d diag mammo w/cad RT. September 15, 2019, bilateral MG 3d diag mammo w/cad SORAIDA. The breast tissue is extremely dense which could obscure a lesion on mammography. Right benign lumpectomy change superior right breast posterior depth. No significant new findings when compared with previous films. These results were verbally communicated with the patient and result sheet given to the patient on 05/22/21. ASSESSMENT: Benign, BI-RAD 2 RECOMMENDATION: Routine screening mammogram of both breasts in 1 year.
== END | disposition home or self-care (01) ==
LOC: RADBDWWP 13:15
PROVIDERS: ATTEND Family Medicine
DX: M81.0 Age-related osteoporosis without current pathological fracture (principal); R92.8 Other abnormal and inconclusive findings on diagnostic imaging of breast
CPT/HCPCS: 77080; 77066; G0279; 77062

== ENCOUNTER → 2021-05-26 | Outpatient (CLI) | payer MEDICARE, OTHER ==
--- NOTE | 2021-05-27 08:20 | US ---
EXAMINATION TYPE: US thyroid st tissue head/neck DATE OF EXAM: 05/26/2021 COMPARISON: US CLINICAL HISTORY: E04.1 THYROID NODULE. GLAND SIZE: Right Lobe: 4.2 x 1.6 x 1.2 cm Overall Parenchyma: homogenous Left Lobe: 3.9 x 2.1x 1.2 cm Overall Parenchyma: homogeneous Isthmus Thickness: 0.4 cm NODULES RIGHT: # of nodules measured on right: 2 1. 0.7 X 0.4 x 0.2 cm, upper, mixed cystic and solid, hypoechoic nodule, which is wider than tall, with smooth margins, with echogenic foci. Prior size: 0.6 x 0.4 x 0.3 cm 2. 0.7 X 0.5 x 0.3 cm, lower medial, mixed cystic and solid, hypoechoic nodule, which is wider than tall, with lobulated or irregular margins, with echogenic foci. Prior size: 0.7 x 0.6 x 0.4 cm LEFT: # of nodules measured on left: 3 1. 1.1 X 0.8 x 0.7 cm, upper pole, mixed cystic and solid, hypoechoic nodule, which is wider than t all, with lobulated or irregular margins, with echogenic foci. Prior size: 1.1 x 0.9 x 0.5 cm 2. 0.4 X 0.4 x 0.2 cm, mid pole, spongiform, hypoechoic nodule, which is wider than tall, with lob ulated or irregular margins, without echogenic foci. Prior size: 1.0 x 0.6 x 0.5 cm 3. 0.4 X 0.4 x 0.3 cm, lower pole, mixed cystic and solid, hypoechoic nodule, which is wider than t all, with smooth margins, without echogenic foci. Prior size: not seen previously ISTHMUS: # of nodules measured in the isthmus: 1 1. 0.2 X 0.3 x 0.1 cm cystic or almost completely cystic, hypoechoic nodule, which is wider than ta ll, with smooth margins, without echogenic foci. Prior size: none seen Bilateral neck scanned: no evidence of lymphadenopathy. IMPRESSION: Bilateral thyroid nodules, as described with a new left nodule and new isthmus nodule. The remainder of the nodules have not significantly increased in size. 2017 ACR TI-RADS LEVEL: TR-RADS 4 - Moderately Suspicious: Follow if > 1 cm, FNA if > 1.5 cm *Highest TI-RADS level nodule reported
== END | disposition home or self-care (01) ==
LOC: RADUSWWP 15:28
PROVIDERS: ATTEND Family Medicine
DX: E04.2 Nontoxic multinodular goiter (principal)
CPT/HCPCS: 76536

== ENCOUNTER → 2021-06-19 | Outpatient (CLI) | payer MEDICARE, OTHER ==
[2021-06-19 10:35] LABS: Basophils # (A) 0.1 k/uL (0-0.2); Basophils % (A) 2 %; Eosinophils # (A) 0.2 k/uL (0-0.7); Eosinophils % (A) 4 %; HCT 45.3 % (34.0-46.0); HGB 14.8 gm/dL (11.4-16.0); Lymphocytes # (A) 1.3 k/uL (1.0-4.8); Lymphocytes % (A) 28 %; MCH 29.2 pg (25.0-35.0); MCHC 32.6 g/dL (31.0-37.0); MCV 89.7 fL (80.0-100.0); Mean Platelet Volume 7.5; Monocytes # (A) 0.3 k/uL (0-1.0); Monocytes % (A) 7 %; Neutrophils # (A) 2.6 k/uL (1.3-7.7); Neutrophils % (A) 57 %; Platelet Count 362 k/uL (150-450); RBC 5.05 m/uL (3.80-5.40); RDW 13.4 % (11.5-15.5); WBC 4.6 k/uL (3.8-10.6)
[2021-06-19 17:27] LABS: African American GFR (CKD) 104.6 (60.0-200.0); Albumin 4.1 g/dL (3.80-4.90); Albumin/Globulin Ratio 1.46 (1.60-3.17); Anion Gap 10.3 mmol/L (4.00-12.00); BUN/Creat Ratio 17.14 Ratio (12.00-20.00); Calcium 9.4 mg/dL (8.7-10.3); Carbon Dioxide 22.7 mmol/L (21.6-31.8); Chol/HDL Ratio 3.74; Globulin 2.8 g/dL (1.6-3.3); LDL Cholesterol,Calculated 125.4 mg/dL (0.0-131.0); Non-African American GFR(CKD) 90.3 (60.0-200.0); Potassium 4.1 mmol/L (3.5-5.5); Total Bilirubin 0.5 mg/dL (0.2-1.2); Total Protein 6.9 g/dL (6.2-8.2); Uric Acid 5.6 mg/dL (2.9-7.7); VLDL Calculation 19.6 mg/dL (5.00-40.00)
[2021-06-19 17:35] LABS: T4, Free (Free Thyroxine) 1.1 ng/dL (0.80-1.80)
== END | disposition home or self-care (01) ==
LOC: LABWHC1 09:08
PROVIDERS: ATTEND Family Medicine
DX: D64.9 Anemia, unspecified (principal); D72.819 Decreased white blood cell count, unspecified; E04.1 Nontoxic single thyroid nodule; I82.409 Acute embolism and thrombosis of unspecified deep veins of unspecified lower extremity
CPT/HCPCS: 36415; 80053; 80061; 82306; 82550; 82607; 84439; 84443; 84550; 85025; 85379

== ENCOUNTER → 2021-12-19 | Outpatient (CLI) | payer MEDICARE, OTHER ==
[2021-12-19 11:03] LABS: Basophils # (A) 0.04 X 10*3/uL (0.00-0.10); Basophils % (A) 1.2 %; Eosinophils % (A) 2.9 %; HCT 44.6 % (37.2-46.3); HGB 13.8 g/dL (12.0-15.0); Lymphocytes # (A) 1.05 X 10*3/uL (0.90-5.00); Lymphocytes % (A) 30.8 %; MCHC 30.9 g/dL (32.0-37.0); MCV 90.7 fL (80.0-97.0); Mean Platelet Volume 9.6 fL (9.5-12.2); Monocytes # (A) 0.39 X 10*3/uL (0.20-1.00); Monocytes % (A) 11.4 %; Neutrophils # (A) 1.83 X 10*3/uL (1.80-7.70); Neutrophils % (A) 53.7 %; Platelet Count 283 X 10*3/uL (140-440); RBC 4.92 X 10*6/uL (4.10-5.20); RDW 12.6 % (11.5-14.5); WBC 3.41 X 10*3/uL (4.50-10.00)
[2021-12-19 15:48] LABS: ALT 11 U/L (8-44); AST 15 U/L (13-35); African American GFR (CKD) 103.2 (60.0-200.0); Albumin 3.9 g/dL (3.8-4.9); Albumin/Globulin Ratio 1.33 (1.60-3.17); Alkaline Phosphatase 79 U/L (41-126); BUN/Creat Ratio 14.49 Ratio (12.00-20.00); Blood Urea Nitrogen 10.2 mg/dL (9.0-27.0); Calcium 8.9 mg/dL (8.7-10.3); Carbon Dioxide 22.9 mmol/L (20.0-27.5); Chloride 108 mmol/L (96-109); Chol/HDL Ratio 4.47 Ratio; Creatine Kinase 38 U/L (26-186); Globulin 2.9 g/dL (1.6-3.3); Glucose 91 mg/dL (70-110); LDL Cholesterol,Calculated 94.7 mg/dL (0.0-131.0); Potassium 3.8 mmol/L (3.5-5.5); Sodium 143 mmol/L (135-145); Total Protein 6.8 g/dL (6.2-8.2)
== END | disposition home or self-care (01) ==
LOC: LABWHC1 08:06
PROVIDERS: ATTEND Family Medicine
DX: E04.1 Nontoxic single thyroid nodule (principal); I82.402 Acute embolism and thrombosis of unspecified deep veins of left lower extremity; E55.9 Vitamin D deficiency, unspecified; E78.5 Hyperlipidemia, unspecified
CPT/HCPCS: 36415; 80053; 80061; 82306; 82550; 84439; 84443; 85025

== ENCOUNTER 2022-01-02 15:34 | Observation (INO) | payer MEDICARE, OTHER ==
[2022-01-02 17:31] LABS: Basophils # (A) 0.1 k/uL (0-0.2); Basophils % (A) 1 %; Eosinophils # (A) 0.1 k/uL (0-0.7); Eosinophils % (A) 1 %; HCT 45.9 % (34.0-46.0); Lymphocytes # (A) 1.2 k/uL (1.0-4.8); Lymphocytes % (A) 21 %; MCH 29.5 pg (25.0-35.0); MCHC 32.8 g/dL (31.0-37.0); Mean Platelet Volume 6.9; Monocytes # (A) 0.3 k/uL (0-1.0); Monocytes % (A) 5 %; Neutrophils # (A) 4.2 k/uL (1.3-7.7); Neutrophils % (A) 70 %; Platelet Count 387 k/uL (150-450); RDW 12.8 % (11.5-15.5)
[2022-01-02 17:41] LABS: INR 0.9 (<1.2); Partial Thromboplastin Time 23.3 sec (22.0-30.0); Prothrombin Time 9.9 sec (9.0-12.0)
[2022-01-02 17:45] LABS: ALT 16 U/L (4-34); AST 21 U/L (14-36); African American GFR (CKD) >90 (>60 ml/min/1.73 sqM); Albumin 4.4 g/dL (3.5-5.0); Alkaline Phosphatase 103 U/L (38-126); Anion Gap 9 mmol/L; Blood Urea Nitrogen 10 mg/dL (7-17); Calcium 10.1 mg/dL (8.4-10.2); Carbon Dioxide 24 mmol/L (22-30); Chloride 108 mmol/L (98-107); Glucose 97 mg/dL (74-99); Non-African American GFR(CKD) 89 (>60 ml/min/1.73 sqM); Potassium 4.5 mmol/L (3.5-5.1); Sodium 141 mmol/L (137-145); Total Bilirubin 0.5 mg/dL (0.2-1.3); Total Protein 7.8 g/dL (6.3-8.2)
--- NOTE | 2022-01-02 18:14 | ED ---
General Adult HPI - General Chief complaint: Recheck/Abnormal Lab/Rx Stated complaint: Eye problems Time Seen by Provider: 01/02/22 16:52 Source: patient Mode of arrival: ambulatory Limitations: no limitations - History of Present Illness Initial comments: 66-year-old female patient presents to the emergency department today sent by her staff research associate for MRI or CT of her brain. Patient states for the last week she's been having some irritation to the right eye. States yesterday morning when she woke up she is unable to open the eye and when it was opened she was having double vision. She denies any recent headache. States she is having some dizziness. States her balance is off due to her visual change. She denies any recent head injury. She denies any numbness or tingling to the face. Denies speech difficulty. Denies numbness, tingling, weakness to her extremities. Does not take any blood thinning medications. States she takes an occasional antacid for hiatal hernia but denies any other medication use. Patient denies any recent rash, fever, chills, cough, shortness of breath, chest pain, abdominal pain, nausea, vomiting, diarrhea, constipation, back pain, hematuria, dysuria, urinary urgency, urinary frequency, or any other complaints. - Related Data Home Medications Medication Instructions Recorded Confirmed Albuterol Sulfate [Ventolin HFA] 1 - 2 puff INHALATION RT-QID PRN 02/21/21 0 01/02/22 Magnesium Oxide [Magox 400] 400 mg PO DAILY 02/21/21 01/02/22 Cholecalciferol [Vitamin D3 (25 25 mcg PO Q48H 01/02/22 01/02/22 Mcg = 1000 Iu)] Ergocalciferol (Vitamin D2) 1,250 mcg PO Q30D 01/02/22 01/02/22 [Drisdol (50,000 Iu)] Fexofenadine HCl [Belkys Allergy] 180 mg PO DAILY PRN 01/02/22 01/02/22 Meloxicam 15 mg PO DAILY PRN 01/02/22 01/02/22 Omeprazole [PriLOSEC] 20 mg PO DAILY PRN 01/02/22 01/02/22 Previous Rx's Medication Instructions Recorded Acetaminophen [Acetaminophen ER] 650 mg PO Q6HR PRN #60 tablet.er 02/25/21 Allergies Allergy/AdvReac Type Severity Reaction Status Date / Time naproxen Allergy Swelling Verified 01/02/22 18:49 in feet Quinazolinones Allergy Rapid Verified 01/02/22 18:49 Heart Rate Quinolones Allergy Unknown Verified 01/02/22 18:49 hydrocodone bitartrate AdvReac Itching Verified 01/02/22 18:49 [From Vicodin] Review of Systems ROS Statement: Those systems with pertinent positive or pertinent negative responses have been documented in the HPI. ROS Other: All systems not noted in ROS Statement are negative. Past Medical History Past Medical History: GERD/Reflux, Osteoarthritis (OA), Thyroid Disorder Additional Past Medical History / Comment(s): lupus, osteoporosis, hiatal hernia, diverticulosis, nodules on thyroid History of Any Multi-Drug Resistant Organisms: None Reported Past Surgical History: Back Surgery, Orthopedic Surgery, Tubal Ligation Additional Past Surgical History / Comment(s): colonoscopy,egd, previous right humerus fracture, previous spinal surgery Past Anesthesia/Blood Transfusion Reactions: No Reported Reaction Past Psychological History: No Psychological Hx Reported Smoking Status: Never smoker Past Alcohol Use History: None Reported Past Drug Use History: None Reported - Past Family History Sister(s) Family Medical History: Thyroid Disorder General Exam Limitations: no limitations General appearance: alert, in no apparent distress, other (This is a well- developed, well-nourished adult female in no acute distress.) Eye exam: Present: EOMI. Absent: normal appearance, PERRL, scleral icterus, conjunctival injection, nystagmus, periorbital swelling Pupils: Present: unequal Expanded Eyelids: Normal Inspection: Bilateral Pupils: Mydriasis: Right Sclera/Conjunctival: Normal Inspection: Bilateral ENT exam: Present: normal exam, normal oropharynx, mucous membranes moist Respiratory exam: Present: normal lung sounds bilaterally. Absent: respiratory distress, wheezes, rales, rhonchi, stridor Cardiovascular Exam: Present: regular rate, normal rhythm, normal heart sounds. Absent: systolic murmur, diastolic murmur, rubs, gallop, clicks Neurological exam: Present: alert, oriented X3 Expanded Speech: Present: fluid speech Cranial nerves: EOM's Intact: Normal, Nystagmus: Normal, Facial Sensation: Normal Motor strength exam: RUE: 5, LUE: 5, RLE: 5, LLE: 5 Psychiatric exam: Present: normal affect, normal mood Skin exam: Present: warm, dry, intact, normal color. Absent: rash Course Vital Signs 01/02/22 01/02/22 01/02/22 15:42 17:38 19:00 Temperature 98.4 F Pulse Rate 71 66 72 Respiratory 20 18 20 Rate Blood Pressure 181/90 145/85 167/97 O2 Sat by Pulse 99 97 98 Oximetry 01/02/22 20:51 Temperature Pulse Rate 70 Respiratory 18 Rate Blood Pressure 128/92 O2 Sat by Pulse 96 Oximetry EKG Findings - EKG Comments: EKG Findings:: EKG obtained at 1728 shows sinus rhythm with ventricular rate of 62, FL interval 172, QRS duration 97, QTC 415, QTC 421. Medical Decision Making - Medical Decision Making 66-year-old female patient is presenting to the emergency department today for evaluation of visual disturbance inability to open the right eye. She is having symptoms since yesterday morning states she is unable to open the right eye and is having double vision. Reports eye irritation but no pain no headaches. Physical examination did reveal right eye ptosis, abnormal tracking of the right eye, and dilated pupil. She is otherwise neurologically intact with no focal deficits. Labs reviewed and are unremarkable. CT brain unremarkable. CT angiography of the head and neck unremarkable. Chest x-ray negative. She'll be admitted to the hospital for further evaluation by neurology. She is agreeable to this plan. My attending is Dr. Mckinnon. - Lab Data Result diagrams: 01/02/22 17:19 01/02/22 17:19 Lab Results 01/02/22 01/02/22 01/02/22 Range/Units 17:19 17:19 17:19 WBC 6.0 (3.8-10.6) k/uL RBC 5.10 (3.80-5.40) m/uL Hgb 15.0 (11.4-16.0) gm/dL Hct 45.9 (34.0-46.0) % MCV 90.0 (80.0-100.0) fL MCH 29.5 (25.0-35.0) pg MCHC 32.8 (31.0-37.0) g/dL RDW 12.8 (11.5-15.5) % Plt Count 387 (150-450) k/uL MPV 6.9 Neutrophils % 70 % Lymphocytes % 21 % Monocytes % 5 % Eosinophils % 1 % Basophils % 1 % Neutrophils # 4.2 (1.3-7.7) k/uL Lymphocytes # 1.2 (1.0-4.8) k/uL Monocytes # 0.3 (0-1.0) k/uL Eosinophils # 0.1 (0-0.7) k/uL Basophils # 0.1 (0-0.2) k/uL PT 9.9 (9.0-12.0) sec INR 0.9 (<1.2) APTT 23.3 (22.0-30.0) sec Sodium 141 (137-145) mmol/L Potassium 4.5 (3.5-5.1) mmol/L Chloride 108 H (98-107) mmol/L Carbon Dioxide 24 (22-30) mmol/L Anion Gap 9 mmol/L BUN 10 (7-17) mg/dL Creatinine 0.71 (0.52-1.04) mg/dL Est GFR (CKD-EPI)AfAm >90 (>60 ml/min/1.73 sqM) Est GFR (CKD-EPI)NonAf 89 (>60 ml/min/1.73 sqM) Glucose 97 (74-99) mg/dL Calcium 10.1 (8.4-10.2) mg/dL Total Bilirubin 0.5 (0.2-1.3) mg/dL AST 21 (14-36) U/L ALT 16 (4-34) U/L Alkaline Phosphatase 103 (38-126) U/L Troponin I (0.000-0.034) ng/mL Total Protein 7.8 (6.3-8.2) g/dL Albumin 4.4 (3.5-5.0) g/dL 01/02/22 Range/Units 17:19 WBC (3.8-10.6) k/uL RBC (3.80-5.40) m/uL Hgb (11.4-16.0) gm/dL Hct (34.0-46.0) % MCV (80.0-100.0) fL MCH (25.0-35.0) pg MCHC (31.0-37.0) g/dL RDW (11.5-15.5) % Plt Count (150-450) k/uL MPV Neutrophils % % Lymphocytes % % Monocytes % % Eosinophils % % Basophils % % Neutrophils # (1.3-7.7) k/uL Lymphocytes # (1.0-4.8) k/uL Monocytes # (0-1.0) k/uL Eosinophils # (0-0.7) k/uL Basophils # (0-0.2) k/uL PT (9.0-12.0) sec INR (<1.2) APTT (22.0-30.0) sec Sodium (137-145) mmol/L Potassium (3.5-5.1) mmol/L Chloride (98-107) mmol/L Carbon Dioxide (22-30) mmol/L Anion Gap mmol/L BUN (7-17) mg/dL Creatinine (0.52-1.04) mg/dL Est GFR (CKD-EPI)AfAm (>60 ml/min/1.73 sqM) Est GFR (CKD-EPI)NonAf (>60 ml/min/1.73 sqM) Glucose (74-99) mg/dL Calcium (8.4-10.2) mg/dL Total Bilirubin (0.2-1.3) mg/dL AST (14-36) U/L ALT (4-34) U/L Alkaline Phosphatase (38-126) U/L Troponin I <0.012 (0.000-0.034) ng/mL Total Protein (6.3-8.2) g/dL Albumin (3.5-5.0) g/dL - Radiology Data Radiology results: report reviewed, image reviewed CT angiography of the head and neck are obtained. Report is reviewed in its entirety. Impression by Dr. Wright shows negative CT angiogram of the neck. Negative CT angiogram of the brain. Two-view x-ray of the chest is obtained. Report was reviewed in its entirety. Impression by Dr. Wright shows no active cardiopulmonary disease. No change. CT brain without contrast was obtained. Report is reviewed in its entirety. Impression by Dr. Wright shows negative unenhanced head computed tomography scan. Disposition Clinical Impression: Third nerve palsy, Diplopia Disposition: ADMITTED IP TO THIS [facility] Condition: Serious Decision to Admit Reason: Admit from EC Decision Date: 01/02/22 Decision Time: 20:31
--- NOTE | 2022-01-02 18:47 | CT ---
EXAMINATION TYPE: CT brain wo con DATE OF EXAM: 01/02/2022 COMPARISON: None HISTORY: Diplopia CT DLP: mGycm Automated exposure control for dose reduction was used. Images of the brain obtained without contrast. Ventricles have normal size. There is no mass effect or midline shift. There is no sign of intracrani al hemorrhage. The calvarium is intact. The skull base is intact. There is normal aeration of the mas toid sinuses. IMPRESSION: Negative unenhanced head CT scan.
--- NOTE | 2022-01-02 19:00 | XR ---
EXAMINATION TYPE: XR chest 2V DATE OF EXAM: 01/02/2022 COMPARISON: 03/11/2014 HISTORY: Altered mental status TECHNIQUE: FINDINGS: There is no heart failure nor confluent pneumonic infiltrate. Costophrenic angles are clear . There are no hilar masses. The bony thorax is intact. The pulmonary vascularity is normal. IMPRESSION: No active cardiopulmonary disease. No change.
--- NOTE | 2022-01-02 19:04 | CT ---
EXAMINATION TYPE: CT angio head neck DATE OF EXAM: 01/02/2022 COMPARISON: None HISTORY: Diplopia. CT DLP: 384.3 mGycm Automated exposure control for dose reduction was used. CONTRAST: Performed with IV Contrast, patient injected with 65ml mL of Isovue 370. Images obtained from the aortic arch to the vertex of the brain with IV contrast. There are Three-D p ostprocessed images. There is normal branching pattern of the great vessels on the aortic arch. There is bilateral arteria l flow in the subclavian arteries. There is arterial flow in the common internal and external carotid arteries bilaterally. There is arterial flow in both vertebral arteries. There is arterial flow in the anterior middle and posterior cerebral arteries. There is arterial flow in the vertebral basilar artery system. There is no evidence of carotid or vertebral artery aneurysm or dissection. There is no mass effect. There is no evidence of intracranial aneurysm or new vascularity. No evidenc e of intracranial arterial stenosis. There is wide patency of the carotid artery bifurcations. There is normal enhancement of the venous sinuses. IMPRESSION: Negative CT angiogram of the neck. Negative CT angiogram of the brain.
[2022-01-02] MEDS ORDERED: NALOXONE 0.4 MG/ML 1 ML VIAL IV PRN (20:27)
[2022-01-02] MEDS ORDERED: RX INFO: IV CONTRAST WAS GIVEN 1 EACH MISC MISCELLANE PRN (21:22)
[2022-01-03] MEDS ORDERED: PANTOPRAZOLE 40 MG TABLET PO PRN (11:34)
[2022-01-03] MEDS ORDERED: MELOXICAM 7.5 MG TAB PO PRN (11:34)
[2022-01-03] MEDS ORDERED: ACETAMINOPHEN TAB 325 MG TAB PO PRN (11:34)
[2022-01-03] MEDS ORDERED: MAGNESIUM OXIDE 400 MG TAB PO SCH (11:45)
--- NOTE | 2022-01-03 12:22 | MR ---
EXAMINATION TYPE: MR brain wo/w con DATE OF EXAM: 01/03/2022 COMPARISON: None HISTORY: prior CT on synapse, right eye swelling, 3rd nerve palsy TECHNIQUE: Multiplanar, multisequence images of the brain and brainstem is performed without and with IV contras t, utilizing 8ml mL intravenous Gadavist . FINDINGS: Please note that the evaluation of the intraorbital contents is limited due to technique. No diffusion restriction abnormalities seen. There is no extra-axial fluid collection or significant white matter signal abnormality. The ventricular system and cisternal spaces are normal in size and appearance. The brain volume is age appropriate. Midline structures demonstrate normal morphology. The craniocervical junction appears within normal limits. Post contrast images demonstrate no abnormal enhancement. The dural venous sinuses appear pa tent. Grossly, the intraorbital contents demonstrate no diffusion restriction or abnormal enhancement. Mild mucosal sinus thickening noted. IMPRESSION: 1. Limited evaluation of the intraorbital contents due to technique. Dedicated MRI of the orbits woul d be more beneficial in evaluation of intraorbital abnormalities. 2. No acute hemorrhage, midline shift, mass effect or's of acute ischemic infarct.
--- NOTE | 2022-01-03 13:24 | P.HPIM ---
History of Present Illness H&P Date: 01/03/22 (Document will serve both as H&P and discharge summary) 66 years old female with history of osteoporosis, thyroid nodule, GERD, hiatal hernia patient of Dr. Wei comes in with the acute onset of irritation in the right eye when she woke up. She was unable to open the eye and noticed double vision. She was seen by drum reel cutter who felt patient's pupil did not react to light and was concerned about third nerve palsy. Patient denies any headache, no fever no chills no neck stiffness. She denies any history of aneurysm or migraines. Patient denies any weakness or numbness in any of her extremities. She denies any gait abnormality or ataxia. She does have ALLERGIES and she has history of tubes in her ear for otitis media. Vitals were reviewed patient's afebrile pulse 67 respiratory rate of 17 blood pressure 106/73 oxygenating at 96 on room air. Lab workup including CBC, CMP was unremarkable. Troponin 1 was negative. COVID virus was negative. Patient underwent CT of the head which was negative for any hemorrhage. CT angiogram was negative for aneurysm or any intracranial process. Patient underwent MRI brain this morning which was negative for any ischemia involving the brainstem. Optic area was not visualized. Neurology was consulted. ROS Constitutional: Denies chills, Denies fever, Denies lethargy, Denies malaise, Denies poor appetite, Denies weakness, Denies weight loss Eyes: denies decreased vision, endorses diplopia, denies discharge, denies pain, ptosis Ears: deny: decreased hearing Ears, nose, mouth and throat: Denies dental pain, Denies headache, Denies nasal discharge, Denies nose pain Cardiovascular: Denies chest pain, Denies decreased exercise tolerance, Denies edema, Denies high blood pressure, Denies irregular heart beat, Denies palpitations, Denies paroxysmal nocturnal dyspnea, Denies rapid heart beat, Denies shortness of breath Respiratory: Denies congestion, Denies cough, Denies cough with sputum, Denies dyspnea, Denies home oxygen, Denies wheezing Gastrointestinal: Denies abdominal pain, Denies change in bowel habits, Denies coffee ground emesis, Denies early satiety, Denies excessive gas, Denies heartburn, Denies hematemesis, Denies hematochezia, Denies loss of appetite, Denies nausea, Denies vomiting Genitourinary: Denies dysuria, Denies flank pain, Denies kidney stones, Denies menorrhagia, Denies urgency, Denies urinary frequency Musculoskeletal: Denies gait dysfunction, Denies limitation of motion, Denies morning stiffness, Denies muscle cramps Integumentary: Denies rash, Denies wounds, Denies brittle nails, Denies change in hair/nails, Denies darkening of skin Neurological: Double vision, ptosis, facial numbness Denies balance difficulties, Denies change in speech, Denies gait dysfunction, Denies loss of vision, Denies motor disturbance, Denies numbness, Denies paralysis, Denies paresthesias, Denies seizures Psychiatric: Denies anxiety, Denies depression Endocrine: Denies excessive sweating, Denies excessive thirst, Denies high blood sugars, Denies palpitations Hematologic/Lymphatic: Denies easy bruising, Denies lymphadenopathy Social history Nonsmoker nondrinker no illicit drug use Family history Mother had Alzheimer's disease Father had cardiovascular heart disease and at the age of 70 Sister had thyroid cancer One daughter healthy Physical exam - Constitutional General appearance: cooperative, no acute distress, thin - EENT Eyes: anicteric sclerae, pupil sluggish involving right eye. Extra ocular movement are intact. Double vision present on seen through both eyes. Closing one eye patient is able to see properly. Ptosis present on the right. Wrinkles on the fourth had a reduced on the right. Labial folds are reduced on the right. ENT: hearing grossly normal - Neck Neck: no lymphadenopathy, normal ROM, no other, no rigidity, no stridor, no thyromegaly - Respiratory Respiratory: bilateral: CTA, negative: diminished, dullness, rales, rhonchi - Cardiovascular Rhythm: regular Heart sounds: normal: S1, S2 Abnormal Heart Sounds: no systolic murmur, no diastolic murmur, no rub, no S3 Gallop, no S4 Gallop, no click, no other - Gastrointestinal General gastrointestinal: normal bowel sounds, soft - Integumentary Integumentary: no rash - Neurologic Neurologic: CNII-XII intact - Musculoskeletal Musculoskeletal: gait normal, strength equal bilaterally - Psychiatric Psychiatric: A&O x's 3, appropriate affect Assessment and plan #[address] palsy. CT head, CT angiogram was negative for aneurysm. MRI head negative for any ischemic event. Patient's seventh nerve that sees likely peripheral in etiology being viral. Valacyclovir 1000 3 times a day for 7 days. Prednisone 60 mg for 5 days. Neurology recommendation appreciated. Would recommend outpatient follow-up with neurology if no improvement noted in 3-4 weeks. Patient may benefit from TENS unit to help with recovery of muscle strength. Patient recommended to use lubricant drop for dryness. Eye protection Were explained to the patient. Patching of the eye would benefit with the vision #2 osteoarthritis. Would recommend holding meloxicam while patient is on antiviral treatment to prevent kidney dysfunction. #3 ALLERGIC rhinitis continue Belkys #4 thyroid nodule follows with ultrasound of the thyroid every year. #5 code status full code #6 DVT prophylaxis encourage ambulation #7 disposition home with self-care Past Medical History Past Medical History: GERD/Reflux, Osteoarthritis (OA), Thyroid Disorder Additional Past Medical History / Comment(s): lupus, osteoporosis, hiatal hernia, diverticulosis, nodules on thyroid History of Any Multi-Drug Resistant Organisms: None Reported Past Surgical History: Back Surgery, Orthopedic Surgery, Tubal Ligation Additional Past Surgical History / Comment(s): colonoscopy,egd, previous right humerus fracture, previous spinal surgery Past Anesthesia/Blood Transfusion Reactions: No Reported Reaction Past Psychological History: No Psychological Hx Reported Smoking Status: Never smoker Past Alcohol Use History: None Reported Past Drug Use History: None Reported - Past Family History Sister(s) Family Medical History: Thyroid Disorder Medications and Allergies Home Medications Medication Instructions Recorded Confirmed Type Albuterol Sulfate [Ventolin HFA] 1 - 2 puff INHALATION RT-QID PRN 02/21/21 01/02/22 History Magnesium Oxide [Magox 400] 400 mg PO DAILY 02/21/21 01/02/22 History Acetaminophen [Acetaminophen ER] 650 mg PO Q6HR PRN #60 tablet.er 02/25/21 01/02/22 Rx Cholecalciferol [Vitamin D3 (25 25 mcg PO Q48H 01/02/22 01/02/22 History Mcg = 1000 Iu)] Ergocalciferol (Vitamin D2) 1,250 mcg PO Q30D 01/02/22 01/02/22 History [Drisdol (50,000 Iu)] Fexofenadine HCl [Belkys Allergy] 180 mg PO DAILY PRN 01/02/22 01/02/22 History Omeprazole [PriLOSEC] 20 mg PO DAILY PRN 01/02/22 01/02/22 History predniSONE [Deltasone] 60 mg PO DAILY #15 tab 01/03/22 Rx valACYclovir HCL 1,000 mg PO TID #21 tab 01/03/22 Rx Allergies Allergy/AdvReac Type Severity Reaction Status Date / Time naproxen Allergy Swelling Verified 01/02/22 18:49 in feet Quinazolinones Allergy Rapid Verified 01/02/22 18:49 Heart Rate Quinolones Allergy Unknown Verified 01/02/22 18:49 hydrocodone bitartrate AdvReac Itching Verified 01/02/22 18:49 [From Vicodin] Physical Exam Vitals: Vital Signs Temp Pulse Pulse Resp BP BP Pulse Ox 01/03/22 07:00 97.8 F 67 17 106/73 96 01/03/22 01:33 98.1 F 66 18 106/70 95 01/02/22 23:35 98.0 F 67 18 130/87 96 01/02/22 23:05 72 18 132/87 99 01/02/22 20:51 70 18 128/92 96 01/02/22 19:00 72 20 167/97 98 01/02/22 17:38 66 18 145/85 97 01/02/22 15:42 98.4 F 71 20 181/90 99 Intake and Output 01/02/22 01/03/22 01/03/22 22:59 06:59 14:59 Intake Total 118 Balance 118 Intake: Oral 118 Other: # Voids 2 Weight 81.647 kg Results CBC & Chem 7: 01/02/22 17:19 01/02/22 17:19 Labs: Abnormal Lab Results - Last 24 Hours (Table) 01/02/22 Range/Units 17:19 Chloride 108 H (98-107) mmol/L Thrombosis Risk Factor Assmnt - Choose All That Apply Any of the Below Risk Factors Present?: Yes Each Factor Represents 1 point: Obesity (BMI >25) Other Risk Factors: Yes Each Risk Factor Represents 2 Points: Age 61-74 years Other congenital or acquired thrombophilia - If yes, enter type in comment: No Thrombosis Risk Factor Assessment Total Risk Factor Score: 3 Thrombosis Risk Factor Assessment Level: Moderate Risk
[2022-01-03 13:51] VITALS: BP 111/75; PULSE 71; RESP 16; TEMP 98.2
--- NOTE | 2022-01-03 14:44 | P.CNNES ---
History of Present Illness Consult date: 01/03/22 Reason for Consult: Third nerve palsy Chief complaint: diplopia History of Present Illness: The patient is a 66-year-old female who is seen in neurologic consultation on January 03, 2022, via telemedicine. The patient reports that for the past week or so, she has been experiencing an itching sensation of her right eye. This past , she was unable to open her right eye. When she did open the eye, the patient reports seeing double. The patient reports that the diplopia is not always horizontal or vertical, it changes. In addition, there are not always 2 separate images but overlapping images. The patient does continue to have irritation of her right eye. She says that her group rooms coordinator center into the hospital, for an MRI. The patient denies other symptoms. She denies pain in her eye. She denies pain with eye movement. After denying eye pain, the patient then reports that she does occasionally have some aching in her right eye. The patient denies headache. She denies difficulty with speech and swallowing. She denies numbness, tingling and weakness in her extremities. The patient denies a history of similar symptoms. CT scan in the emergency department revealed no signs of acute hemorrhage or infarct. CT angiogram of the head and neck revealed no signs of significant s tenosis or large vessel occlusion. Review of Systems Negative except for that noted in history of chief complaint Past Medical History Past Medical History: GERD/Reflux, Osteoarthritis (OA), Thyroid Disorder Additional Past Medical History / Comment(s): lupus, osteoporosis, hiatal hernia, diverticulosis, nodules on thyroid History of Any Multi-Drug Resistant Organisms: None Reported Past Surgical History: Back Surgery, Orthopedic Surgery, Tubal Ligation Additional Past Surgical History / Comment(s): colonoscopy,egd, previous right humerus fracture, previous spinal surgery Past Anesthesia/Blood Transfusion Reactions: No Reported Reaction Past Psychological History: No Psychological Hx Reported Smoking Status: Never smoker Past Alcohol Use History: None Reported Past Drug Use History: None Reported - Past Family History Sister(s) Family Medical History: Thyroid Disorder Medications and Allergies Home Medications Medication Instructions Recorded Confirmed Type Albuterol Sulfate [Ventolin HFA] 1 - 2 puff INHALATION RT-QID PRN 02/21/21 01/02/22 History Magnesium Oxide [Magox 400] 400 mg PO DAILY 02/21/21 01/02/22 History Acetaminophen [Acetaminophen ER] 650 mg PO Q6HR PRN #60 tablet.er 02/25/21 01/02/22 Rx Cholecalciferol [Vitamin D3 (25 25 mcg PO Q48H 01/02/22 01/02/22 History Mcg = 1000 Iu)] Ergocalciferol (Vitamin D2) 1,250 mcg PO Q30D 01/02/22 01/02/22 History [Drisdol (50,000 Iu)] Fexofenadine HCl [Belkys Allergy] 180 mg PO DAILY PRN 01/02/22 01/02/22 History Omeprazole [PriLOSEC] 20 mg PO DAILY PRN 01/02/22 01/02/22 History Artificial Tears Ointment 1 gm OPHTHALMIC QID #3.5 gm 01/03/22 Rx [Lubrifresh Pm Ointment] predniSONE [Deltasone] 60 mg PO DAILY #15 tab 01/03/22 Rx valACYclovir HCL 1,000 mg PO TID #21 tab 01/03/22 Rx Allergies Allergy/AdvReac Type Severity Reaction Status Date / Time naproxen Allergy Swelling Verified 01/02/22 18:49 in feet Quinazolinones Allergy Rapid Verified 01/02/22 18:49 Heart Rate Quinolones Allergy Unknown Verified 01/02/22 18:49 hydrocodone bitartrate AdvReac Itching Verified 01/02/22 18:49 [From Vicodin] Physical Examination - Vital Signs Vital Signs: Vital Signs Temp Pulse Pulse Resp BP BP Pulse Ox 01/03/22 07:00 97.8 F 67 17 106/73 96 01/03/22 01:33 98.1 F 66 18 106/70 95 01/02/22 23:35 98.0 F 67 18 130/87 96 01/02/22 23:05 72 18 132/87 99 01/02/22 20:51 70 18 128/92 96 01/02/22 19:00 72 20 167/97 98 01/02/22 17:38 66 18 145/85 97 01/02/22 15:42 98.4 F 71 20 181/90 99 Intake and Output 01/02/22 01/03/22 01/03/22 22:59 06:59 14:59 Intake Total 118 Balance 118 Intake: Oral 118 Other: # Voids 2 Weight 81.647 kg Gen.: The patient is reclining in the bed. She is well-nourished, well- developed and in no acute distress. HEENT: Head is atraumatic, normocephalic. There is no scleral icterus. Fundus not visualized. There is right ptosis. Mucous membranes are moist. Neck: Supple, without carotid bruits Heart: Regular rate and rhythm Lungs: Clear to auscultation Extremities: Without edema Neurological examination Mental status: The patient's awake, alert and oriented 3. Her speech is clear. There is no dysarthria or aphasia. Cranial nerves: Right pupil is 3 mm. Left pupil 2 mm. Both are reactive. Visual resendiz are full to confrontation. Extraocular movements are intact. There is no nystagmus. Facial sensation is intact. There is flattening of the right nasolabial fold. There is decreased elevation of the right eyebrow. There is decreased strength of right eyelid closure. Hearing is grossly intact. Uvula and palate are midline. Shoulder shrug is symmetric. Tongue protrudes to the right of midline. Motor: Strength is 5/5 throughout Sensation: Grossly intact to light touch throughout. Coordination: Finger to nose and rapid alternating movements are intact. Deep tendon reflexes: 2+/4+ throughout Results - Laboratory Findings CBC and BMP: 01/02/22 17:19 01/02/22 17:19 Abnormal Lab Findings: Abnormal Labs 01/02/22 17:19 Chloride 108 H - Diagnostic Findings Comments: MRI of the brain images were personally reviewed. There is no evidence of acute hemorrhage or infarct or mass Assessment and Plan Assessment: 1. Right cranial nerve VII palsy, with likely corneal irritation Plan: 1. MRI of brain with and without gadolinium, with attention to the brainstem 2. Discussed diagnosis with patient and hospitalist. 3. Valacyclovir 500 mg twice daily for 7 days 4. Medrol Dosepak 5. The patient was advised to tape her eye closed at night, to protect her cornea from drying out 6. The patient was advised to use eyedrops, natural tears liberally throughout the day and before bedtime Time with Patient: Greater than 30 (Spent 45 minutes with patient via telemedicine)
== END 2022-01-03 14:23 | disposition home or self-care (01) ==
LOC: EC 15:34 → 6NMEDSUR 20:09
PROVIDERS: ADMIT Internal Medicine; ATTEND Internal Medicine
DX: G51.0 Bell's palsy (principal); M19.90 Unspecified osteoarthritis, unspecified site; J30.9 Allergic rhinitis, unspecified; E04.1 Nontoxic single thyroid nodule; E07.9 Disorder of thyroid, unspecified; Z20.822 Contact with and (suspected) exposure to COVID-19; K44.9 Diaphragmatic hernia without obstruction or gangrene; K21.9 Gastro-esophageal reflux disease without esophagitis; M81.0 Age-related osteoporosis without current pathological fracture; H57.04 Mydriasis; H02.401 Unspecified ptosis of right eyelid; E66.9 Obesity, unspecified; Z68.31 Body mass index [BMI] 31.0-31.9, adult; K57.90 Diverticulosis of intestine, part unspecified, without perforation or abscess without bleeding; Z79.1 Long term (current) use of non-steroidal anti-inflammatories (NSAID); Z88.5 Allergy status to narcotic agent; Z88.6 Allergy status to analgesic agent; Z88.8 Allergy status to other drugs, medicaments and biological substances; Z98.51 Tubal ligation status; Z98.890 Other specified postprocedural states; Z80.8 Family history of malignant neoplasm of other organs or systems; Z82.0 Family history of epilepsy and other diseases of the nervous system; Z83.49 Family history of other endocrine, nutritional and metabolic diseases
CPT/HCPCS: 99285; 36415; 93005; 80053; 84484; 85025; 85610; 85730; 87635; 71046; 70496; 70450; 70498; 70553; G0378 ×2; Q9967; A9585

== ENCOUNTER → 2022-06-05 | Outpatient (CLI) | payer MEDICARE, OTHER ==
--- NOTE | 2022-06-05 13:07 | US ---
EXAMINATION TYPE: US thyroid st tissue head/neck DATE OF EXAM: 06/05/2022 COMPARISON: NONE CLINICAL HISTORY: E04.1 Thyroid nodule. GLAND SIZE: Right Lobe: 4.9 x 1.2 x 1.5 cm Overall Parenchyma: homogenous Left Lobe: 4.8 x 0.9 x 1.5 cm Overall Parenchyma: homogeneous Isthmus Thickness: 0.2 cm NODULES RIGHT: # of nodules measured on right: 1 1. 0.6 X 0.3 x 0.6 cm, medial near isthmus, solid or almost completely solid, nodule, which is wid er than tall, with smooth margins, without echogenic foci. Prior size:0.7 x 0.6 x 0.4cm 2.Upper mixed nodule lower medial not seen on today's ultrasound. LEFT: # of nodules measured on left: 1. 1.0 X 0.6 x 0.7 cm, upper, mixed cystic and solid, hypoechoic nodule, which is wider than tall, with lobulated or irregular margins, without echogenic foci. Prior size:1.1 X 0.8 x 0.7 cm 2. 0.4 X 0.2 x 0.4 cm, mid, solid or almost completely solid, isoechoic nodule, which is wider megan n tall, with ill-defined margins, without echogenic foci. Prior size:4 X 0.4 x 0.2cm ISTHMUS: # of nodules measured in the isthmus: 0 Bilateral neck scanned, no evidence of lymphadenopathy. IMPRESSION: Stable nonspecific nodularity.
--- NOTE | 2022-06-08 10:08 | MM ---
Reason for Exam: Screening (asymptomatic). Last screening mammogram was performed 12 month(s) ago. Patient History: Menarche at age 12. First Full-Term at age 28. Postmenopausal. 01/09/2020, High risk Core Biopsy on the right side. 10/05/2019, High risk Core Biopsy on the right side. 03/26/2006, Benign Cyst Aspiration on the right side. 03/26/2006, Benign Core Biopsy on the right side. 03/26/2006, Benign Cyst Aspiration on the left side. Risk Values: Karey 5 year model risk: 2.8%. NCI Lifetime model risk: 9.5%. Prior Study Comparison: 09/06/2018 Bilateral Screening Mammogram, [facility]. 09/09/2018 Bilateral Diagnostic Mammogram, [facility]. 03/13/2019 Left Diagnostic Mammogram, [facility]. 09/15/2019 Bilateral Diagnostic Mammogram, [facility]. 07/09/2020 Right Diagnostic Mammogram, [facility]. 05/22/2021 Bilateral Diagnostic Mammogram, [facility]. Tissue Density: The breast tissue is heterogeneously dense. This may lower the sensitivity of mammography. Findings: Analyzed By CAD. Scattered benign vascular calcifications. Microclip 12:00 right breast from prior biopsy. Additional postexcisional changes redemonstrated 12:00 right breast with underlying excisional scar. No significant change from prior exams. Overall Assessment: Benign, BI-RAD 2 Management: Screening Mammogram of both breasts in 1 year. 1. Patient should continue monthly self breast exams. 2. A clinical breast exam by your physician is recommended on an annual basis. 3. This exam should not preclude additional follow-up of suspicious palpable abnormalities. Electronically signed and approved by: Nina Davenport M.D. Radiologist
== END | disposition home or self-care (01) ==
LOC: RADUSWWP 12:10
PROVIDERS: ATTEND Family Medicine
DX: Z12.31 Encounter for screening mammogram for malignant neoplasm of breast (principal); E04.1 Nontoxic single thyroid nodule
CPT/HCPCS: 76536; 77063; 77067

== ENCOUNTER → 2022-09-30 | Outpatient (CLI) | payer MEDICARE, OTHER ==
--- NOTE | 2022-10-01 07:01 | CA ---
Transthoracic Echo Report Name: Raisa Hartman Age: 67 Gender: F : 1955 Exam Date: 09/30/2022 13:32 Exam Location: [facility] Ht (in): 63 Wt (lb): 175 Ordering Physician: Inna Wei MD Attending/Referring Phys: Pump Machine Operator Neeta Meneses RDCS Procedure CPT: Indications: I25.6 silent myocardial ischemia Cardiac Hx: Technical Quality: Good Contrast 1: Total Dose (mL): Contrast 2: Total Dose (mL): MEASUREMENTS (Male / Female) Normal Values 2D ECHO LV Diastolic Diameter PLAX 3.8 cm 4.2 - 5.9 / 3.9 - 5.3 cm LV Systolic Diameter PLAX 2.6 cm IVS Diastolic Thickness 1.0 cm 0.6 - 1.0 / 0.6 - 0.9 cm LVPW Diastolic Thickness 1.0 cm 0.6 - 1.0 / 0.6 - 0.9 cm LV Relative Wall Thickness 0.5 RV Internal Dim ED PLAX 3.1 cm LA Systolic Diameter LX 3.0 cm 3.0 - 4.0 / 2.7 - 3.8 cm LA Volume 27.9 cm??? 18 - 58 / 22 - 52 cm??? M-MODE Aortic Root Diameter MM 3.4 cm MV E Point Septal Separation 0.7 cm AV Cusp Separation MM 1.8 cm DOPPLER AV Peak Velocity 143.9 cm/s AV Peak Gradient 8.3 mmHg MV Area PHT 3.1 cm??? Mitral E Point Velocity 85.9 cm/s Mitral A Point Velocity 92.6 cm/s Mitral E to A Ratio 0.9 MV Deceleration Time 243.3 ms MV E' Velocity 8.9 cm/s Mitral E to MV E' Ratio 9.7 FINDINGS Left Ventricle Left ventricular ejection fraction is estimated at 55-60 %. Left ventricular cavity size normal. Left ventricular wall thickness normal. Right Ventricle Normal right ventricular size and function. Unable to estimate the right ventricular systolic pressure. Right Atrium Normal right atrial size. Left Atrium Normal left atrial size. No evidence for an atrial septal defect. Mitral Valve Structurally normal mitral valve. Trace to mild mitral regurgitation. Aortic Valve Trileaflet aortic valve. No aortic valve stenosis or regurgitation. Tricuspid Valve Structurally normal tricuspid valve. No tricuspid stenosis, regurgitation or prolapse. Pulmonic Valve Trace pulmonic regurgitation. Structurally normal pulmonic valve. Pericardium Normal pericardium. No pericardial effusion. Aorta Normal size aortic root and proximal ascending aorta. CONCLUSIONS 1. Normal left ventricle size and systolic function 2. Trace to mild mitral regurgitation Previewed by: Dr. Yuriy Daley MD (Electronically Signed) Final Date: 01 October 2022 06:59
== END | disposition home or self-care (01) ==
LOC: RADECHMAIN 12:47
PROVIDERS: ATTEND Family Medicine
DX: I34.0 Nonrheumatic mitral (valve) insufficiency (principal); I25.6 Silent myocardial ischemia
CPT/HCPCS: 93306

== ENCOUNTER → 2025-04-03 | Outpatient (CLI) | payer MEDICARE, OTHER ==
--- NOTE | 2025-04-03 09:05 | CT ---
EXAMINATION TYPE: CT chest wo con DATE OF EXAM: 04/03/2025 6:45 AM COMPARISON: Radiograph 01/02/2022 CLINICAL INDICATION: Female, 69 years old with history of M89.8X1 DISORDERS OF BONE R07.89 CHEST PAIN ; PHH, clavicle and sternal pain, arms down due to clavicle pain TECHNIQUE: Multiple axial images were obtained through the chest without IV contrast. Sagittal and co glenroy reformats were created for review. MIP was performed on a separate workstation. CT DLP: 496 mGycm, Automated exposure control for dose reduction was used. FINDINGS: 2.9 cm corticated bone fragment along the posterior aspect of the left humeral head. Sequela of prior comminuted proximal humeral fracture which has healed with some slight angulation and impaction at t he level of the surgical neck. * Linear lucency involving the left anterior first rib end. * Additional oblique fracture involving the sternal manubrium. This shows some absorptive changes of healing suggesting a more subacute injury. * Callus involving fourth, fifth, sixth, and seventh left lateral ribs. Heart normal size without pericardial effusion. Ectatic ascending aorta 3.6 cm. Conventional arch vessel branching anatomy. No thoracic lymphadenopathy by CT size criteria. Strandy atelectasis or scarring of the lower lungs. Tiny 2 mm left basilar pulmonary nodule of questionable clinical significance. No consolidation or pl eural effusion. Small to moderate-sized hiatal hernia. 1.9 cm cortical cyst lateral left kidney. Accentuated midthoracic kyphosis. Mild superior endplate deformity T12 suspected chronic. Minimal 10% overall height loss. No paravertebral soft tissue abnormality here. IMPRESSION: 1. Subacute oblique fracture sternal manubrium. Possible subacute, nondisplaced fracture left anterio r first rib costochondral junction. Additional subacute, healing fractures left lateral fourth, fifth , sixth, and seventh ribs. Correlate for corresponding trauma history. 2. Strandy atelectasis/scarring in the lower lungs. Otherwise, no acute pulmonary process. A 12 month follow-up CT chest can reassess a tiny 2 mm left basilar pulmonary nodule per Fleischner guidelines. 3. Small to moderate-sized hiatal hernia. 4. Old impacted surgical neck fracture proximal left humerus. [facility], , 04/03/2025 9:03 AM
== END | disposition home or self-care (01) ==
LOC: RADCTMAIN 06:20
PROVIDERS: ATTEND Orthopaedic Surgery Orthopaedic Surgery of the Spine
DX: S22.42XD Multiple fractures of ribs, left side, subsequent encounter for fracture with routine healing (principal); M89.8X1 Other specified disorders of bone, shoulder; K44.9 Diaphragmatic hernia without obstruction or gangrene; R91.1 Solitary pulmonary nodule; X58.XXXD Exposure to other specified factors, subsequent encounter
CPT/HCPCS: 71250

== ENCOUNTER 2025-04-17 18:37 | Emergency (ER) | payer MEDICARE, OTHER ==
[2025-04-17 18:41] VITALS: TEMP 97.8
--- NOTE | 2025-04-17 19:28 | ED ---
General Adult HPI - General Chief complaint: ENT Stated complaint: R Ear Issue Time Seen by Provider: 04/17/25 18:44 Source: patient Mode of arrival: ambulatory Limitations: no limitations - History of Present Illness Initial comments: 69-year-old female presents to the emergency department for possible foreign body in her right ear. Patient states that she has been utilizing some earbuds. She states that she believes the rubber piece of the earbud has gotten stuck in her ear. She denies any foreign body sensation. She is just unsure where the e nd of the earbud went. - Related Data Home Medications Medication Instructions Recorded Confirmed Albuterol Sulfate [Ventolin HFA] 1 - 2 puff INHALATION RT-QID PRN 02/21/21 01/02/22 Magnesium Oxide [Magox 400] 400 mg PO DAILY 02/21/21 01/02/22 Cholecalciferol [Vitamin D3 (25 25 mcg PO Q48H 01/02/22 01/02/22 Mcg = 1000 Iu)] Ergocalciferol (Vitamin D2) 1,250 mcg PO Q30D 01/02/22 01/02/22 [Drisdol (50,000 Iu)] Fexofenadine HCl [Belkys Allergy] 180 mg PO DAILY PRN 01/02/22 01/02/22 Omeprazole [PriLOSEC] 20 mg PO DAILY PRN 01/02/22 01/02/22 Previous Rx's Medication Instructions Recorded Acetaminophen [Acetaminophen ER] 650 mg PO Q6HR PRN #60 tablet.er 02/25/21 Artificial Tears Ointment 1 gm OPHTHALMIC QID #3.5 gm 01/03/22 [Lubrifresh Pm Ointment] predniSONE [Deltasone] 60 mg PO DAILY #15 tab 01/03/22 valACYclovir HCL [Valacyclovir] 1,000 mg PO TID #21 tab 01/03/22 Cyclobenzaprine [Flexeril] 5 mg PO TID PRN #15 tablet 08/07/23 Ketorolac [Toradol] 10 mg PO Q8HR #15 tab 08/07/23 Lidocaine 5% Patch [Lidoderm] 1 each TP DAILY #20 patch 08/07/23 Allergies Allergy/AdvReac Type Severity Reaction Status Date / Time naproxen Allergy Swelling Verified 04/17/25 18:41 in feet Quinazolinones Allergy Rapid Verified 04/17/25 18:41 Heart Rate Quinolones Allergy Unknown Verified 04/17/25 18:41 hydrocodone bitartrate AdvReac Itching Verified 04/17/25 18:41 [From Vicodin] Review of Systems ROS Statement: Those systems with pertinent positive or pertinent negative responses have been documented in the HPI. ROS Other: All systems not noted in ROS Statement are negative. Past Medical History Past Medical History: GERD/Reflux, Osteoarthritis (OA), Thyroid Disorder Additional Past Medical History / Comment(s): lupus, osteoporosis, hiatal hernia, diverticulosis, nodules on thyroid, lumbar compression fx History of Any Multi-Drug Resistant Organisms: None Reported Past Surgical History: Back Surgery, Orthopedic Surgery, Tubal Ligation Additional Past Surgical History / Comment(s): colonoscopy,egd, previous right humerus fracture, previous spinal surgery Past Anesthesia/Blood Transfusion Reactions: No Reported Reaction Past Psychological History: No Psychological Hx Reported Smoking Status: Never smoker Past Alcohol Use History: None Reported Past Drug Use History: None Reported - Past Family History Sister(s) Family Medical History: Thyroid Disorder General Exam Limitations: no limitations General appearance: alert, in no apparent distress Head exam: Present: atraumatic, normocephalic, normal inspection Eye exam: Present: normal appearance, PERRL, EOMI. Absent: scleral icterus, conjunctival injection, periorbital swelling ENT exam: Present: normal exam, TM's normal bilaterally, normal external ear exam (No visible foreign body in bilateral ear canals) Respiratory exam: Present: normal lung sounds bilaterally. Absent: respiratory distress, wheezes, rales, rhonchi, stridor Cardiovascular Exam: Present: regular rate, normal rhythm, normal heart sounds. Absent: systolic murmur, diastolic murmur, rubs, gallop, clicks Extremities exam: Present: normal inspection, full ROM, normal capillary refill. Absent: tenderness, pedal edema, joint swelling, calf tenderness Neurological exam: Present: alert, oriented X3 Psychiatric exam: Present: normal affect, normal mood Skin exam: Present: warm, dry, intact, normal color. Absent: rash Course Vital Signs 04/17/25 04/17/25 18:38 19:50 Temperature 97.8 F Pulse Rate 47 L 58 L Respiratory 20 18 Rate Blood Pressure 154/89 137/79 O2 Sat by Pulse 98 98 Oximetry Medical Decision Making - Medical Decision Making Was pt. sent in by a medical professional or institution (JAMEY Avalos, PLATE INSPECTOR, urgent care, hospital, or prison...) When possible be specific @ -No Did you speak to anyone other than the patient for history (EMS, parent, family, police, friend...)? What history was obtained from this source @ -No Did you review nursing and triage notes (agree or disagree)? Why? @ -I reviewed and agree with nursing and triage notes Were old charts reviewed (outside hosp., previous admission, EMS record, old EKG, old radiological studies, urgent care reports/EKG's, prison records)? Report findings @ -No old charts were reviewed Differential Diagnosis (chest pain, altered mental status, abdominal pain women, abdominal pain men, vaginal bleeding, weakness, fever, dyspnea, syncope, headache, dizziness, GI bleed, back pain, seizure, CVA, palpatations, mental health, musculoskeletal)? @ -Ear foreign body, otitis externa, otitis media, this is not all inclusive EKG interpreted by me (3pts min.). @ -None X-rays interpreted by me (1pt min.). @ -None done CT interpreted by me (1pt min.). @ -None done U/S interpreted by me (1pt. min.). @ -None done What testing was considered but not performed or refused? (CT, X-rays, U/S, labs)? Why? @ -None What meds were considered but not given or refused? Why? @ -None Did you discuss the management of the patient with other professionals (professionals i.e. JAMEY Avalos, [employer]ATE INSPECTOR, lab, RT, psych nurse, social work supervisor, batch freezer operator, teacher, chief privacy officer, transplant case manager)? Give summary @ -No Was smoking cessation discussed for >3mins.? @ -No Was critical care preformed (if so, how long)? @ -No Were there social determinants of health that impacted care today? How? (Homelessness, low income, unemployed, alcoholism, drug addiction, transportation, low edu. Level, literacy, decrease access to med. care, prison, r ehab)? @ -No Was there de-escalation of care discussed even if they declined (Discuss DNR or withdrawal of care, Hospice)? DNR status @ -No What co-morbidities impacted this encounter? (DM, HTN, Smoking, COPD, CAD, Cancer, CVA, ARF, Chemo, Hep., AIDS, mental health diagnosis, sleep apnea, morbid obesity)? @ -None Was patient admitted / discharged? Hospital course, mention meds given and route, prescriptions, significant lab abnormalities, going to OR and other pertinent info. @ -Discharge. Patient presented for possible foreign body in the right ear. On examination, there is no visible foreign body in either ear canal. TM is intact. Patient was advised on this and will be discharged home. Case discussed with Dr. Brooks. Undiagnosed new problem with uncertain prognosis? @ -No Drug Therapy requiring intensive monitoring for toxicity (Heparin, Nitro, Insulin, Cardizem)? @ -No Were any procedures done? @ -No Diagnosis/symptom? @ -Ear ache Acute, or Chronic, or Acute on Chronic? @ -Acute Uncomplicated (without systemic symptoms) or Complicated (systemic symptoms)? @ -Uncomplicated Side effects of treatment? @ -No Exacerbation, Progression, or Severe Exacerbation? @ -No Poses a threat to life or bodily function? How? (Chest pain, [place], MA, pneumonia, PE, COPD, DKA, ARF, appy, cholecystitis, CVA, Diverticulitis, Homicidal, Suicidal, threat to staff... and all critical care pts) @ -No Disposition Clinical Impression: Ear ache Disposition: HOME SELF-CARE Condition: Stable Instructions (If sedation given, give patient instructions): Earache (ED) Additional Instructions: Please follow up with your doctor. Return to the emergency department for new or worsening symptoms. Is patient prescribed a controlled substance at d/c from ED?: No Referrals: None,Stated [Primary Care Provider] - 1-2 days
[2025-04-17 20:16] VITALS: BP 137/79; PULSE 58; RESP 18
== END 2025-04-17 19:51 | disposition home or self-care (01) ==
LOC: EC 18:37
DX: H92.01 Otalgia, right ear (principal); Z88.5 Allergy status to narcotic agent; W44.G1XA Audio device entering into or through a natural orifice, initial encounter
CPT/HCPCS: 99283